=== PATIENT | female | born 1935 | race Caucasian/White ===

== ENCOUNTER → 2016-12-05 | Outpatient (CLI) | payer MEDICARE, OTHER ==
[~2016-12-05] MED LIST: AMLO-334 PO; AMLO1CAP9 PO; ATEN50TA PO; CITA20TA4 PO; LEVO75TA6 PO; LVT.088T PO; OMEP40CA36 PO; ONDA-43 PO; PNT40TEC PO; POTA99TA15 PO; PRED10TA PO; PRV20T GT; SULF1TAB34 PO
== END ==
LOC: RAD 09:52
PROVIDERS: ATTEND Nurse Practitioner Family
DX: Z12.31 Encounter for screening mammogram for malignant neoplasm of breast (principal)
CPT/HCPCS: 77067

== ENCOUNTER → 2017-05-06 | Outpatient (CLI) | payer MEDICARE, OTHER ==
[~2017-05-06] MED LIST changes: +IOHEXOL 350 MG/ML 100 ML (OMNIPAQUE 350) VIAL IV ONE; +NS 250 ML (IVPB) BAG IV ONE
--- NOTE | 2017-05-06 16:04 | Diagnostic Imaging Report ---
INDICATION: Right leg pain and swelling. Right leg venous Doppler study was performed in the routine fashion with color flow Doppler and waveform analysis. FINDINGS: The right common femoral vein, superficial femoral vein, popliteal vein and visualized portion of the tibial veins show normal compressibility and venous flow patterns. There is normal augmentation. IMPRESSION: No evidence of deep vein thrombosis of the major veins of the right leg. Dictated by: Dictated on workstation # [id number]
--- NOTE | 2017-05-06 17:00 | Diagnostic Imaging Report ---
PROCEDURE: CT right lower extremity with contrast. TECHNIQUE: Multiple contiguous axial CT images of the right extremity were obtained after intravenous administration of iodinated contrast. INDICATION: Swelling, mass, lump in the right lower leg lateral side for 3 months. COMPARISON: None. FINDINGS: No acute fracture or dislocation is seen in the right tibia/fibula. Mild degenerative changes are seen in the right knee and right ankle. There is a small right knee joint effusion. No left ankle effusion is seen. No aggressive osseous lesions are identified. There is mild deformity of the proximal left fibula, may be from remote injury. The musculature in the right lower leg demonstrates mild generalized atrophy, but no focal atrophy is seen. No rim-enhancing fluid collections are seen. No soft tissue masses are seen. There is mild subcutaneous edema at the lateral aspect of the right lower leg overlying the peroneus longus muscle. The visible tendons are suboptimally evaluated by CT, but no abnormality is seen. IMPRESSION: 1. Mild nonspecific subcutaneous edema in the lateral right lower leg, may represent mild cellulitis. No soft tissue mass or rim-enhancing fluid collection is seen. 2. Small right knee joint effusion. No acute osseous abnormality is seen. Dictated by: Dictated on workstation # [id number]
== END ==
LOC: RAD 14:52
DX: R60.0 Localized edema (principal); M25.461 Effusion, right knee
CPT/HCPCS: 73701

== ENCOUNTER 2017-05-17 19:53 | Emergency (ER) | payer MEDICARE, OTHER ==
[~2017-05-17] VITALS: Ht 170.2 cm; Wt 79.4 kg
[~2017-05-17 19:53] MED LIST changes: -IOHEXOL 350 MG/ML 100 ML (OMNIPAQUE 350) VIAL IV ONE; -NS 250 ML (IVPB) BAG IV ONE
--- OUTSIDE RECORDS SUMMARY | 2017-05-17 20:00 | XMS REPORT | Continuity of Care Document ---
Author Author [facility] Organization [facility] Address Unknown Phone Unavailable Allergies Active Description Code Type Severity Reaction Onset Reported/Identified Relationship to Patient Clinical Status Yes ZOCOR, LIPITOR ZOCOR, LIPITOR Unknown N/A 11/22/2013 Yes atorvastatin [id number] Drug Allergy Unknown N/A 08/28/2014 Yes simvastatin [id number] Drug Allergy Unknown N/A 08/28/2014 Medications There is no data. Problems Date Dx Coded Attending Type Code Diagnosis Diagnosed By 01/07/2010 Ot 530.81 01/07/2010 Ot 553.3 01/07/2010 Ot 562.10 01/07/2010 Ot V12.72 12/22/2013 DENIZ HERNANDEZ SECURITY SYSTEM ANALYST Ot 724.2 12/28/2013 DENIZ HERNANDEZ SECURITY SYSTEM ANALYST Ot 562.10 12/28/2013 DENIZ HERNANDEZ SECURITY SYSTEM ANALYST Ot V76.12 01/03/2014 DENIZ HERNANDEZ SECURITY SYSTEM ANALYST Ot 721.0 01/03/2014 DENIZ HERNANDEZ SECURITY SYSTEM ANALYST Ot 847.0 01/03/2014 DENIZ HERNANDEZ SECURITY SYSTEM ANALYST Ot E000.8 01/03/2014 DENIZ HERNANDEZ SECURITY SYSTEM ANALYST Ot E928.9 01/03/2014 DENIZ HERNANDEZ SECURITY SYSTEM ANALYST Ot 724.2 08/27/2014 PAUL TRUJILLO, ASTRID Adler Ot 599.0 URIN TRACT INFECTION NOS 08/27/2014 PAUL TRUJILLO, ASTRID Adler Ot 784.0 HEADACHE 08/30/2014 KEEGAN TRUJILLO, BRAYAN Lott Ot 244.9 08/30/2014 KEEGAN TRUJILLO, BRAYAN Lott Ot 311 08/30/2014 KEEGAN TRUJILLO, BRAYAN Lott Ot 401.9 08/30/2014 KEEGAN TRUJILLO, BRAYAN Lott Ot 530.81 08/30/2014 KEEGAN TRUJILLO, BRAYAN Lott Ot 536.2 08/30/2014 KEEGAN TRUJILLO, BRAYAN Lott Ot 599.0 08/30/2014 KEEGAN TRUJILLO, BRAYAN D Ot 716.90 08/31/2014 Ot V76.12 08/31/2014 Ot V76.12 08/31/2014 KEEGAN TRUJILLO, BRAYAN D Ot V76.12 08/31/2014 CONI MITCH [employer]AR[employer] MODEL MAKER Ot 793.89 08/31/2014 BRANDO TRUJILLO, KERWIN Lott Ot 530.19 08/31/2014 BRANDO TRUJILLO, KERWIN Lott Ot 535.40 08/31/2014 BRANDO TRUJILLO, KERWIN Lott Ot 553.3 08/31/2014 BRANDO TRUJILLO, KERWIN Lott Ot 562.10 08/31/2014 BRANDO TRUJILLO, KERWIN Lott Ot V12.72 08/31/2014 BRANDO TRUJILLO, KERWIN Lott Ot V16.0 08/31/2014 BRANDO TRUJILLO, KERWIN Lott Ot V76.51 08/31/2014 BRANDO TRUJILLO, KERWIN Lott Ot V72.84 08/31/2014 DENIZ HERNANDEZ SECURITY SYSTEM ANALYST Ot 562.10 08/31/2014 DENIZ HERNANDEZ SECURITY SYSTEM ANALYST Ot V76.12 08/31/2014 DENIZ HERNANDEZ SECURITY SYSTEM ANALYST Ot 724.2 08/31/2014 DENIZ HERNANDEZ SECURITY SYSTEM ANALYST Ot 721.0 08/31/2014 DENIZ HERNANDEZ SECURITY SYSTEM ANALYST Ot 847.0 08/31/2014 DENIZ HERNANDEZ SECURITY SYSTEM ANALYST Ot E000.8 08/31/2014 DENIZ HERNANDEZ SECURITY SYSTEM ANALYST Ot E928.9 08/31/2014 KEEGAN TRUJILLO, BRAYAN D Ot 244.9 08/31/2014 KEEGAN TRUJILLO, BRAYAN D Ot 311 08/31/2014 KEEGAN TRUJILLO, BRAYAN D Ot 401.9 08/31/2014 KEEGAN TRUJILLO, BRAYAN D Ot 530.81 08/31/2014 KEEGAN TRUJILLO, BRAYAN D Ot 536.2 08/31/2014 KEEGAN TRUJILLO, BRAYAN D Ot 599.0 08/31/2014 KEEGAN TRUJILLO, BRAYAN D Ot 716.90 08/31/2014 KEEGAN TRUJILLO, BRAYAN D Ot 244.9 HYPOTHYROIDISM NOS 08/31/2014 KEEGAN TRUJILLO, BRAYAN D Ot 311 DEPRESSIVE DISORDER NEC 08/31/2014 KEEGAN TRUJILLO, BRAYAN D Ot 401.9 HYPERTENSION NOS 08/31/2014 KEEGAN TRUJILLO, BRAYAN D Ot 530.81 ESOPHAGEAL REFLUX 08/31/2014 KEEGAN TRUJILLO, BRAYAN Lott Ot 536.2 08/31/2014 KEEGAN TRUJILLO, BRAYAN Lott Ot 536.8 STOMACH FUNCTION DIS NEC 08/31/2014 KEEGAN TRUJILLO, BRAYAN Lott Ot 599.0 URIN TRACT INFECTION NOS 08/31/2014 KEEAGN TRUJILLO, BRAYAN Lott Ot 625.8 FEM GENITAL SYMPTOMS NEC 08/31/2014 KEEGAN TRUJILLO, BRAYAN Lott Ot 716.90 ARTHROPATHY NOS-UNSPEC 09/01/2014 Ot V76.12 09/01/2014 Ot V76.12 09/01/2014 KEEGAN TRUJILLO, BRAYAN Lott Ot V76.12 09/01/2014 CONI MITCH [employer] MODEL MAKER Ot 793.89 09/01/2014 BRANDO TRUJILLO, KERWIN Lott Ot 530.19 09/01/2014 BRANDO TRUJILLO, KERWIN Lott Ot 535.40 09/01/2014 BRANDO TRUJILLO, KERWIN Lott Ot 553.3 09/01/2014 BRANDO TRUJILLO, KERWIN oLtt Ot 562.10 09/01/2014 BRANDO TRUJILLO, KERWIN Lott Ot V12.72 09/01/2014 BRANDO TRUJILLO, KERWIN Lott Ot V16.0 09/01/2014 BRANDO TRUJILLO, KERWIN Lott Ot V76.51 09/01/2014 BRANOD TRUJILLO, KERWIN Lott Ot V72.84 09/01/2014 DENIZ HERNANDEZ SECURITY SYSTEM ANALYST Ot 562.10 09/01/2014 DENIZ HERNANDEZ SECURITY SYSTEM ANALYST Ot V76.12 09/01/2014 DENZI HERNANDEZ SECURITY SYSTEM ANALYST Ot 724.2 09/01/2014 DENIZ HERNANDEZ SECURITY SYSTEM ANALYST Ot 721.0 09/01/2014 DENIZ HERNANDEZ SECURITY SYSTEM ANALYST Ot 847.0 09/01/2014 DENIZ HERNANDEZ SECURITY SYSTEM ANALYST Ot E000.8 09/01/2014 DENIZ HERNANDEZ SECURITY SYSTEM ANALYST Ot E928.9 10/06/2014 KEEGAN TRUJILLO, BRAYAN Lott Ot 244.9 10/06/2014 KEEGAN TRUJILLO, BRAYAN Lott Ot 374.30 10/17/2014 KEEGAN TRUJILLO, BRAYAN Lott Ot 376.30 10/30/2014 KEEGAN TRUJILLO, BRAYAN Lott Ot 244.9 10/30/2014 KEEGAN TRUJILLO, BRAYAN Lott Ot 374.30 10/31/2014 KEEGAN TRUJILLO, BRAYAN Lott Ot 376.30 11/27/2014 KEEGAN TRUJILLO, BRAYAN Lott Ot 376.30 12/14/2014 KEEGAN TRUJILLO, BRAYAN Lott Ot Z12.31 07/11/2015 PAUL TRUJILLO, ASTRID Adler Ot 599.0 URIN TRACT INFECTION NOS 07/11/2015 PAUL TRUJILLO, ASTRID Adler Ot 784.0 HEADACHE 08/10/2015 PAUL TRUJILLO, ASTRID Adler Ot 599.0 URIN TRACT INFECTION NOS 08/10/2015 PAUL TRUJILLO, ASTRID Adler Ot 784.0 HEADACHE 12/04/2015 Ot V76.12 OTH SCREEN MAMMO-MALIGN NEOPLASM OF MIREYA 12/04/2015 KEEGAN TRUJILLO, BRAYAN Lott Ot V76.12 OTH SCREEN MAMMO-MALIGN NEOPLASM OF MIREYA 12/04/2015 MITCH NEWBERRY Ot 793.89 OTH (ABN) FINDINGS ON RADIOLOGICAL EXAMI 12/04/2015 BRANDO TRUJILLO, KERWIN Lott Ot 530.19 OTHER ESOPHAGITIS 12/04/2015 BRANDO TRUJILLO, KERWIN Lott Ot 535.40 OTH SPECIFIED GASTRITIS,W/O MENTION OF H 12/04/2015 BRANDO TRUJILLO, KERWIN Lott Ot 553.3 DIAPHRAGMATIC HERNIA 12/04/2015 BRANDO TRUJILLO, KERWIN Lott Ot 562.10 DIVERTICULOSIS COLON (W/O MENT OF HEMORR 12/04/2015 BRANDO TRUJILLO, KERWIN Lott Ot V12.72 PERSONAL HISTORY OF COLONIC POLYPS 12/04/2015 BRANDO TRUJILLO, KERWIN Lott Ot V16.0 FAMILY HX-GI MALIGNANCY 12/04/2015 BRANDO TRUJILLO, KERWIN Lott Ot V76.51 SCREEN MAL NEOP-COLON 12/04/2015 BRANDO TRUJILLO, KERWIN Lott Ot V72.84 EXAM PRE-OPERATIVE NOS 12/04/2015 DENIZ HERNANDEZ SECURITY SYSTEM ANALYST Ot 562.10 DIVERTICULOSIS COLON (W/O MENT OF HEMORR 12/04/2015 DENIZ HERNANDEZ SECURITY SYSTEM ANALYST Ot V76.12 OTH SCREEN MAMMO-MALIGN NEOPLASM OF [place]REYA 12/04/2015 DENIZ HERNANDEZ SECURITY SYSTEM ANALYST Ot 724.2 LUMBAGO 12/04/2015 DENIZ HERNANDEZ SECURITY SYSTEM ANALYST Ot 721.0 CERVICAL SPONDYLOSIS 12/04/2015 DENIZ HERNANDEZ SECURITY SYSTEM ANALYST Ot 847.0 SPRAIN OF NECK 12/04/2015 DENIZ HERNANDEZ SECURITY SYSTEM ANALYST Ot E000.8 OTHER EXTERNAL CAUSE STATUS 12/04/2015 DENIZ HERNANDEZ N SECURITY SYSTEM ANALYST Ot E928.9 ACCIDENT NOS 12/04/2015 KEEGAN TRUJILLO, BRAYAN Lott Ot 244.9 HYPOTHYROIDISM NOS 12/04/2015 BRAYAN ALLISON MD Ot 374.30 PTOSIS OF EYELID NOS 12/04/2015 BRAYAN ALLISON MD Ot 376.30 EXOPHTHALMOS NOS 12/04/2015 BRAYAN ALLISON MD Ot 376.30 EXOPHTHALMOS NOS 12/04/2015 BRAYAN ALLISON MD Ot Z12.31 ENCNTR SCREEN MAMMOGRAM FOR MALIGNANT NE 12/13/2015 DENZI HERNANDEZ N SECURITY SYSTEM ANALYST Ot Z12.31 ENCNTR SCREEN MAMMOGRAM FOR MALIGNANT NE 01/10/2016 PAUL TRUJILLO, ASTRID K Ot 599.0 URIN TRACT INFECTION NOS 01/10/2016 PAUL TRUJILLO, ASTRID K Ot 784.0 HEADACHE 04/09/2016 PAUL TRUJILLO ASTRID K Ot 599.0 URIN TRACT INFECTION NOS 04/09/2016 PAUL TRUJILLO ASTRID K Ot 784.0 HEADACHE 10/10/2016 PAUL TRUJILLO, ASTRID K Ot 599.0 URIN TRACT INFECTION NOS 10/10/2016 PAUL TRUJILLO, ASTRID K Ot 784.0 HEADACHE 12/05/2016 BRAYAN ALLISON MD Ot V76.12 OTH SCREEN MAMMO-MALIGN NEOPLASM OF MIREYA 12/05/2016 CONI MITCH Kamer[employer] MODEL MAKER Ot 793.89 OTH (ABN) FINDINGS ON RADIOLOGICAL EXAMI 12/05/2016 KERWIN MICHAELS MD Ot 530.19 OTHER ESOPHAGITIS 12/05/2016 KERWIN MICHAELS MD Ot 535.40 OTH SPECIFIED GASTRITIS,W/O MENTION OF H 12/05/2016 KERWIN MICHAELS MD Ot 553.3 DIAPHRAGMATIC HERNIA 12/05/2016 KERWIN MICHAELS MD Ot 562.10 DIVERTICULOSIS COLON (W/O MENT OF HEMORR 12/05/2016 KERWIN MICHAELS MD Ot V12.72 PERSONAL HISTORY OF COLONIC POLYPS 12/05/2016 KERWIN MICHAELS MD Ot V16.0 FAMILY HX-GI MALIGNANCY 12/05/2016 KERWIN MICHAELS MD Ot V76.51 SCREEN MAL NEOP-COLON 12/05/2016 KERWIN MICHAELS MD Ot V72.84 EXAM PRE-OPERATIVE NOS 12/05/2016 DENIZ HERNANDEZ SECURITY SYSTEM ANALYST Ot 562.10 DIVERTICULOSIS COLON (W/O MENT OF HEMORR 12/05/2016 DENIZ HERNANDEZ Tr SECURITY SYSTEM ANALYST Ot V76.12 OTH SCREEN MAMMO-MALIGN NEOPLASM OF [place]REYA 12/05/2016 DENIZ HERNANDEZ SECURITY SYSTEM ANALYST Ot 724.2 LUMBAGO 12/05/2016 DENIZ HERNANDEZ SECURITY SYSTEM ANALYST Ot 721.0 CERVICAL SPONDYLOSIS 12/05/2016 DENIZ HERNANDEZ Tr SECURITY SYSTEM ANALYST Ot 847.0 SPRAIN OF NECK 12/05/2016 DENIZ HERNANDEZ SECURITY SYSTEM ANALYST Ot E000.8 OTHER EXTERNAL CAUSE STATUS 12/05/2016 DENIZ HERNANDEZ SECURITY SYSTEM ANALYST Ot E928.9 ACCIDENT NOS 12/05/2016 BRAYAN ALLISON MD Ot 244.9 HYPOTHYROIDISM NOS 12/05/2016 BRAYAN ALLISON MD Ot 374.30 PTOSIS OF EYELID NOS 12/05/2016 BRAYAN ALLISON MD Ot 376.30 EXOPHTHALMOS NOS 12/05/2016 BRAYAN ALLISON MD Ot 376.30 EXOPHTHALMOS NOS 12/05/2016 BRAYAN ALLISON MD Ot Z12.31 ENCNTR SCREEN MAMMOGRAM FOR MALIGNANT NE 12/05/2016 DENIZ HERNANDEZ Tr SECURITY SYSTEM ANALYST Ot Z12.31 ENCNTR SCREEN MAMMOGRAM FOR MALIGNANT NE 12/05/2016 DENIZ HERNANDEZ Tr SECURITY SYSTEM ANALYST Ot Z12.31 ENCNTR SCREEN MAMMOGRAM FOR MALIGNANT NE 12/29/2016 DENIZ HERNANDEZ Tr SECURITY SYSTEM ANALYST Ot Z12.31 ENCNTR SCREEN MAMMOGRAM FOR MALIGNANT NE 05/07/2017 BRAYAN ALLISON MD Ot M25.461 EFFUSION, RIGHT KNEE 05/07/2017 BRAYAN ALLISON MD Ot R60.0 LOCALIZED EDEMA Procedures There is no data. Results There is no data. Encounters ACCT No. Visit Date/Time Discharge Status Pt. Type Provider Facility Loc./Unit Complaint [id number] 05/06/2017 14:52:00 05/06/2017 23:59:59 CLS Outpatient BRAYAN ALLISON MD [facility] RAD SWELLING,MASS AND LUMP,RIGHT LOWER LIMB [id number] 12/05/2016 09:52:00 12/05/2016 23:59:59 CLS Outpatient DENIZ HERNANDEZ SECURITY SYSTEM ANALYST [facility] RAD SCREENING Z12.31 [id number] 12/04/2015 10:22:00 12/04/2015 23:59:59 CLS Outpatient DENIZ HERNANDEZ SECURITY SYSTEM ANALYST [facility] RAD SCREENING [id number] 11/24/2014 10:28:00 11/24/2014 23:59:59 CLS Outpatient BRAYAN ALLISON MD [facility] RAD SCREENING [id number] 10/11/2014 13:29:00 10/11/2014 23:59:59 CLS Outpatient BRAYAN ALLISON MD [facility] RAD EXOPHTHALMOS [id number] 09/14/2014 14:10:00 09/14/2014 23:59:59 CLS Outpatient BRAYAN ALLISON MD [facility] RAD DOUBLE VISOIN, BULGING OF LT EYE [id number] 09/12/2014 12:28:00 09/12/2014 23:59:59 CLS Outpatient BRAYAN ALLISON MD [facility] RAD SWELLING OF LT EYE, DOUBLE VISION [id number] 08/28/2014 11:59:00 08/31/2014 16:07:00 DIS Inpatient BRAYAN ALLISON MD [facility] SURGICAL UTI;INTRACTABLE N/V [id number] 08/27/2014 10:19:00 08/27/2014 12:56:00 DIS Emergency ASTRID MILLER MD [facility] ER HEADACHE,EYE SWELLING [id number] 11/30/2013 10:41:00 11/30/2013 23:59:59 CLS Outpatient DENIZ HERNANDEZ SECURITY SYSTEM ANALYST [facility] RAD LOW BACK PAIN [id number] 11/25/2013 08:25:00 11/25/2013 23:59:59 CLS Outpatient DENIZ HERNANDEZ SECURITY SYSTEM ANALYST [facility] RAD SPRAIN OF NECK [id number] 11/22/2013 07:43:00 11/22/2013 23:59:59 CLS Outpatient DENIZ HERNANDEZ SECURITY SYSTEM ANALYST [facility] RAD ABDOMINAL PAIN [id number] 07/07/2012 07:55:00 07/07/2012 23:59:59 CLS Outpatient MITCH NEWBERRY ELDA [facility] RAD ABN MAMMO [id number] 06/29/2012 08:31:00 06/29/2012 23:59:59 [facility] [id number] 06/24/2012 07:49:00 06/24/2012 23:59:59 CLS Outpatient KERWIN MICHAELS MD [facility] PREOP HISTORY OF POLYPS/ REFLUX [id number] 06/18/2012 10:02:00 06/18/2012 23:59:59 CLS Outpatient BRAYAN ALLISON MD [facility] RAD SCREENING [id number] 08/31/2014 13:23:00 Document Registration [id number] 02/14/2010 09:03:00 Document Registration [id number] 01/07/2010 09:29:00 Document Registration
[2017-05-17 20:14] LABS: BILIRUBIN,URINE NEGATIVE (NEGATIVE); CLARITY,URINE CLEAR; COLOR,URINE YELLOW; GLUCOSE, URINE (UA) NEGATIVE (NEGATIVE); KETONES,URINE NEGATIVE (NEGATIVE); LEUKOCYTE ESTERASE ,URINE 1+ (NEGATIVE); NITRITE,URINE NEGATIVE (NEGATIVE); PH,URINE 5 (5-9); PROTEIN,URINE NEGATIVE (NEGATIVE); UROBILINOGEN,URINE NORMAL (NORMAL)
[2017-05-17] MEDS ORDERED: ONDANSETRON 4 MG (ZOFRAN) ORAL DISSOLVE TAB SL STA (20:15)
[2017-05-17 20:25] LABS: BACTERIA,URINE NEGATIVE /HPF; HYALINE CASTS, URINE RARE /LPF; RBC,URINE RARE /HPF; SQUAMOUS EPITHELIAL CELL,UR 0-2 /HPF; WBC,URINE 0-2 /HPF
--- NOTE | 2017-05-17 20:51 | ED GU-Female ---
General Chief Complaint: -Female Stated Complaint: UTI SYMPTOMS VOMITING/CHILLS Nursing Triage Note: difficult urination, n/v since 1700 recently treated for uti did not finish abx. Nursing Sepsis Screen: No Definite Risk Source: patient, family Exam Limitations: no limitations History of Present Illness Date Seen by Provider: May 17, 2017 Time Seen by Provider: 20:51 Initial Comments 82-year-old female patient presents to the emergency department with complaints of chills, nausea, vomiting, and diarrhea beginning tonight at 1700. Patient states she was recently treated for a urinary tract infection. Did not finish all of her antibiotics. Patient states she was treated approximately 2 weeks ago. Also was treated approximately 2 months ago for shingles of the right posterior shoulder. Initially reported difficulty with urination, but states now that she is not having any frequency or dysuria. Timing/Duration: this evening, constant Severity/Quality: cramping Location: other (generalized abdomen) Activities at Onset: none Prior Genitourinary Problems: none Modifying Factors: Worsens With Eating Allergies and Home Medications Allergies Coded Allergies: atorvastatin (Verified Allergy, Unknown, 08/28/14) simvastatin (Verified Allergy, Unknown, 08/28/14) Home Medications Amlodipine/Benazepril 1 Each Capsule, 1 EACH PO DAILY, (Reported) Atenolol 50 Mg Tablet, 50 MG PO DAILY, (Reported) Citalopram Hydrobromide 20 Mg Tablet, 20 MG PO DAILY, (Reported) Levothyroxine Sodium 75 Mcg Tablet, 75 MCG PO DAILY, (Reported) Omeprazole 40 Mg Capsule.dr, 40 MG PO DAILY, (Reported) Ondansetron 8 Mg Tab, 8 MG PO Q4H Prescribed by: ASTRID MILLER on 08/27/14 1147 Ondansetron 8 Mg Tab.rapdis, 8 MG PO Q6H PRN for NAUSEA/VOMITING-1ST LINE Prescribed by: WILBERT RAMIREZ on 05/17/17 2303 Potassium Gluconate 99 Mg Tablet, 99 MG PO DAILY Prescribed by: BRAYAN MARVIN on 08/31/14 0924 Prednisone 10 Mg Tablet, 10 MG PO BID PRN for AIR HUNGER Prescribed by: BRAYAN MARVIN on 08/31/14 0928 Promethazine HCl 25 Mg Supp.rect, 25 MG RC Q6H PRN for NAUSEA/VOMITING-2ND LINE Prescribed by: WILBERT RAMIREZ on 05/17/17 2303 Sulfamethoxazole/Trimethoprim 1 Each Tablet, 1 TAB PO BID Prescribed by: ASTRID MILLER on 08/27/14 1147 Patient Home Medication List Home Medication List Reviewed: Yes Review of Systems Constitutional: chills, No diaphoresis, No dizziness, No fever, malaise EENTM: no symptoms reported Respiratory: no symptoms reported Cardiovascular: no symptoms reported Gastrointestinal: abdominal pain (generalized abdominal cramping), diarrhea, No hematemesis, loss of appetite, No melena, nausea, vomiting Genitourinary: denies burning, denies dysuria, denies frequency, denies flank pain, denies hematuria, denies pain Musculoskeletal: no symptoms reported Skin: no symptoms reported Psychiatric/Neurological: No Symptoms Reported All Other Systemes Reviewed Negative Unless Noted: Yes (Negative excepted noted.) Past Przzkks-Acwust-Stwkzx Hx Patient Social History Alcohol Use: Denies Use Recreational Drug Use: No Smoking Status: Never a Smoker 2nd Hand Smoke Exposure: No Recent Foreign Travel: No Contact w/Someone Who Travel: No Recent Infectious Disease Expo: No Recent Hopitalizations: No Immunizations Up To Date Date of Pneumonia Vaccine: Aug 09, 2009 Seasonal Allergies Seasonal Allergies: No Past Medical History Surgeries: Yes (HIATAL HERNIA) Appendectomy, Gallbladder, Thyroidectomy Respiratory: No Cardiac: Yes High Cholesterol, Hypertension Neurological: No : No 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 Genitourinary: Yes UTI-Chronic Gastrointestinal: Yes Gastroesophageal Reflux, Diverticulosis, Hiatal Hernia Musculoskeletal: Yes (ARTHRITIS) Endocrine: Yes Hypothyroidsim HEENT: Yes Cataract Cancer: No Psychosocial: Yes Depression Integumentary: No Blood Disorders: No Adverse Reaction/Blood Tranf: No Family Medical History Reviewed Nursing Family Hx Cataracts G8 SISTER Colon cancer G8 SISTER FH: stroke 19 FATHER FHx: heart disease 19 MOTHER Glaucoma G8 SISTER Leukemia G8 BROTHER Prostate cancer G8 BROTHER Thyroid disease G8 SISTER No Pertinent Family Hx Physical Exam Vital Signs Vital Signs - First Documented 05/17/17 20:10 Temp 98.8 Pulse 97 Resp 18 B/P (MAP) 130/63 (85) Pulse Ox 95 O2 Delivery Room Air Capillary Refill : Less Than 3 Seconds General Appearance: WD/WN, no apparent distress HEENT: PERRL/EOMI, pharynx normal Neck: supple, normal inspection Cardiovascular: normal peripheral pulses, regular rate, rhythm, no edema, no murmur Respiratory: lungs clear, normal breath sounds, no respiratory distress, no accessory muscle use Gastrointestinal: normal bowel sounds, soft, no organomegaly, No distended, guarding (lower abdominal guarding), No rebound, tenderness (generalized tenderness with greatest tenderness in the lower abdomen) Back: no CVA tenderness, other (erythematous patchy rash of the right posterior shoulder consistent with a recent history of herpes zoster.) Extremities: no pedal edema, normal capillary refill Neurologic/Psychiatric: alert, normal mood/affect, oriented x 3 Skin: normal color, warm/dry, rash (erythematous patchy rash of the right posterior shoulder consistent with a recent history of herpes zoster.) Progress/Results/Core Measures Suspected Sepsis Recent Fever Within 48 Hours: No Infection Criteria Present: None New/Unexplained Altered Menta: No Sepsis Screen: No Definite Risk Sepsis Diagnosis: SIRS Temperature:98.8 Pulse: 97 Respiratory Rate: 18 Laboratory Tests 05/17/17 21:25: White Blood Count 7.1 Blood Pressure 130 /63 Mean: 85 Laboratory Tests 05/17/17 21:25: Creatinine 0.96, Platelet Count 162, Total Bilirubin 0.4 Results/Orders Lab Results Laboratory Tests Test 05/17/17 20:08 05/17/17 21:25 Range/Units Urine Color YELLOW Urine Clarity CLEAR Urine pH 5 5-9 Urine Specific [place] 1.015 L 1.016-1.022 Urine Protein NEGATIVE NEGATIVE Urine Glucose (UA) NEGATIVE NEGATIVE Urine Ketones NEGATIVE NEGATIVE Urine Nitrite NEGATIVE NEGATIVE Urine Bilirubin NEGATIVE NEGATIVE Urine Urobilinogen NORMAL NORMAL MG/DL Urine Leukocyte Esterase 1+ H NEGATIVE Urine RBC (Auto) NEGATIVE NEGATIVE Urine RBC RARE /HPF Urine WBC 0-2 /HPF Urine Squamous Epithelial Cells 0-2 /HPF Urine Renal Epithelial Cells NONE /HPF Urine Crystals NONE /LPF Urine Bacteria NEGATIVE /HPF Urine Casts PRESENT /LPF Urine Hyaline Casts RARE /LPF Urine Mucus NEGATIVE /LPF Urine Culture Indicated NO White Blood Count 7.1 4.3-11.0 10^3/uL Red Blood Count 4.66 4.35-5.85 10^6/uL Hemoglobin 13.9 11.5-16.0 G/DL Hematocrit 40 35-52 % Mean Corpuscular Volume 86 80-99 FL Mean Corpuscular Hemoglobin 30 25-34 PG Mean Corpuscular Hemoglobin Concent 35 32-36 G/DL Red Cell Distribution Width 14.4 10.0-14.5 % Platelet Count 162 130-400 10^3/uL Mean Platelet Volume 11.4 H 7.4-10.4 FL Neutrophils (%) (Auto) 92 H 42-75 % Lymphocytes (%) (Auto) 3 L 12-44 % Monocytes (%) (Auto) 3 0-12 % Eosinophils (%) (Auto) 2 0-10 % Basophils (%) (Auto) 0 0-10 % Neutrophils # (Auto) 6.6 1.8-7.8 X 10^3 Lymphocytes # (Auto) 0.2 L 1.0-4.0 X 10^3 Monocytes # (Auto) 0.2 0.0-1.0 X 10^3 Eosinophils # (Auto) 0.1 0.0-0.3 10^3/uL Basophils # (Auto) 0.0 0.0-0.1 10^3/uL Neutrophils % (Manual) 86 % Lymphocytes % (Manual) 3 % Monocytes % (Manual) 3 % Eosinophils % (Manual) 0 % Basophils % (Manual) 0 % Band Neutrophils 6 % Reactive Lymphocytes 2 % Poikilocytosis SLIGHT Elliptocytes SLIGHT Sodium Level 129 L 135-145 MMOL/L Potassium Level 3.9 3.6-5.0 MMOL/L Chloride Level 96 L 98-107 MMOL/L Carbon Dioxide Level 20 L 21-32 MMOL/L Anion Gap 13 5-14 MMOL/L Blood Urea Nitrogen 14 7-18 MG/DL Creatinine 0.96 0.60-1.30 MG/DL Estimat Glomerular Filtration Rate 56 BUN/Creatinine Ratio 15 Glucose Level 106 H 70-105 MG/DL Calcium Level 9.2 8.5-10.1 MG/DL Total Bilirubin 0.4 0.1-1.0 MG/DL Aspartate Amino Transf (AST/SGOT) 33 5-34 U/L Alanine Aminotransferase (ALT/SGPT) 31 0-55 U/L Alkaline Phosphatase 63 40-136 U/L C-Reactive Protein High Sensitivity 1.36 H 0.00-0.50 MG/DL Total Protein 6.5 6.4-8.2 GM/DL Albumin 3.9 3.2-4.5 GM/DL Lipase 29 8-78 U/L My Orders Orders - WILBERT RAMIREZ Ua Culture If Indicated (05/17/17 20:02) Ondansetron Oral Dissolve Tab (Zofran (05/17/17 20:15) Saline Lock/Iv-Start (05/17/17 20:58) Cbc With Automated Diff (05/17/17 20:58) Comprehensive Metabolic Panel (05/17/17 20:58) Hs C Reactive Protein (05/17/17 20:58) Lipase (05/17/17 20:58) Ct Abdomen/Pelvis W (05/17/17 20:58) Ns Iv 1000 Ml (Sodium Chloride 0.9%) (05/17/17 20:58) Ondansetron Injection (Zofran Injectio (05/17/17 21:00) Famotidine Injection (Pepcid Injection) (05/17/17 20:58) Manual Differential (05/17/17 21:25) Rx-Ondansetron Po (Rx-Zofran Po) (05/17/17 23:05) Ondansetron Injection (Zofran Injectio (05/17/17 23:15) Medications Given in ED Current Medications Medications Dose Ordered Sig/Bisi Route Start Time Stop Time Status Last Admin Dose Admin Ondansetron HCl 4 mg ONCE ONCE IVP 05/17/17 21:00 05/17/17 21:01 DC 05/17/17 21:30 4 MG Sodium Chloride 1,000 ml @ 0 mls/hr Q0M ONCE IV 05/17/17 20:58 05/17/17 21:00 DC 05/17/17 21:30 0 MLS/HR Vital Signs/I&O 05/17/17 20:10 Temp 98.8 Pulse 97 Resp 18 B/P (MAP) 130/63 (85) Pulse Ox 95 O2 Delivery Room Air Capillary Refill : Less Than 3 Seconds Blood Pressure Mean: 85 Diagnostic Imaging Diagonstic Imaging: CT Plain Films/CT/US/NM/MRI: abdomen, pelvis Comments Nonspecific Jolene mesentery and subcentimeter lymph nodes in the midabdomen. Consider adenitis or mesenteric panniculitis. Small hiatal hernia noted. Sigmoid diverticulosis without diverticulitis. Findings per stat rad report. Reviewed: Reviewed Night [facility] Study Departure Communication (Admissions) Laboratory and diagnostic findings discussed with the patient and family. Plan for discharge to home. We will plan on having patient obtain stool cultures as an outpatient. We will also plan on repeating her BMP as an outpatient this week. Patient to follow-up with Dr. Marvin for recheck early this week. She will call for appointment times tomorrow. Patient is to return immediately to the emergency department for worsened symptoms or any other concerns. Impression Primary Impression: Mesenteric adenitis Disposition: HOME, SELF-CARE Condition: Improved Departure-Patient Inst. Decision time for Depature: 23:02 Referrals: BRAYAN MARVIN MD (PCP/Family) Primary Care Physician Patient Instructions: [id number], Mesenteric Lymphadenitis (DC) Add. Discharge Instructions: All discharge instructions reviewed with patient and/or family. Voiced understanding. Medications as instructed. Tylenol Extra Strength over-the- counter as directed for pain or fever. Push fluids. Clear liquid diet until symptoms improve, then increase diet slowly to a low-fat, bland diet. Follow- up with Dr. Marvin this week for recheck as an outpatient, call tomorrow morning for appointment time. Return to the emergency department for worsened symptoms or any other concerns. Scripts Promethazine HCl (Phenergan) 25 Mg Supp.rect 25 MG RC Q6H Y for NAUSEA/VOMITING-2ND LINE, #10 SUPP.RECT 0 Refills Prov: WILBERT RAMIREZ 05/17/17 Ondansetron (Ondansetron Odt) 8 Mg Tab.rapdis 8 MG PO Q6H Y for NAUSEA/VOMITING-1ST LINE, #10 TAB 0 Refills Prov: WILBERT RAMIREZ 05/17/17 WILBERT RAMIREZ May 17, 2017 20:51
[2017-05-17] MEDS ORDERED: NS IV 1000 ML 1,000 ML IV ONE (20:58)
[2017-05-17] MEDS ORDERED: FAMOTIDINE 20MG/2ML IV (PEPCID) IV STA (20:58)
[2017-05-17] MEDS ORDERED: ONDANSETRON 4 MG/2 ML (SDV) Z0FRAN IVP ONE ×2 (21:00→23:15)
[2017-05-17 21:35] LABS: BASOPHILS % (AUTO) 0 % (0-10); EOSINOPHILS # (AUTO) 0.1 10^3/uL (0.0-0.3); EOSINOPHILS % (AUTO) 2 % (0-10); HEMATOCRIT 40 % (35-52); HEMOGLOBIN 13.9 G/DL (11.5-16.0); LYMPHOCYTES # (AUTO) 0.2 X 10^3 (1.0-4.0); LYMPHOCYTES % (AUTO) 3 % (12-44); MEAN CORPUSCULAR HEMOGLOBIN 30 PG (25-34); MEAN CORPUSCULAR HGB CONC 35 G/DL (32-36); MEAN CORPUSCULAR VOLUME 86 FL (80-99); MEAN PLATELET VOLUME 11.4 FL (7.4-10.4); MONOCYTES # (AUTO) 0.2 X 10^3 (0.0-1.0); MONOCYTES % (AUTO) 3 % (0-12); NEUTROPHILS # (AUTO) 6.6 X 10^3 (1.8-7.8); NEUTROPHILS % (AUTO) 92 % (42-75); PLATELET COUNT 162 10^3/uL (130-400); RED BLOOD COUNT 4.66 10^6/uL (4.35-5.85); RED CELL DISTRIBUTION WIDTH 14.4 % (10.0-14.5); WHITE BLOOD COUNT 7.1 10^3/uL (4.3-11.0)
[2017-05-17 21:51] LABS: BAND NEUTROPHILS 6 %; BASOPHILS % (MANUAL) 0 %; ELLIPT/OVALOCYTES SLIGHT; EOSINOPHILS % (MANUAL) 0 %; LYMPHOCYTES % (MANUAL) 3 %; MONOCYTES % (MANUAL) 3 %; NEUTROPHILS % (MANUAL) 86 %; POIKILOCYTOSIS SLIGHT; REACTIVE LYMPHOCYTES 2 %
[2017-05-17 21:59] LABS: ALBUMIN 3.9 GM/DL (3.2-4.5); BILIRUBIN,TOTAL 0.4 MG/DL (0.1-1.0); CALCIUM 9.2 MG/DL (8.5-10.1); CREATININE SERUM 0.96 MG/DL (0.60-1.30); POTASSIUM 3.9 MMOL/L (3.6-5.0); TOTAL PROTEIN 6.5 GM/DL (6.4-8.2)
[2017-05-17] MEDS ORDERED: PROM25SU43 RC (23:03)
[2017-05-17] MEDS ORDERED: ONDA8TAB13 PO (23:03)
[2017-05-17] MEDS ORDERED: RX-ONDANSETRON 4 MG ODT (ZOFRAN) PPK #4 PO STA (23:05)
[2017-05-17 23:24] VITALS: BP 121/64
--- NOTE | 2017-05-18 07:01 | Diagnostic Imaging Report ---
PROCEDURE: CT abdomen and pelvis with contrast. TECHNIQUE: Multiple contiguous axial images were obtained through the abdomen and pelvis after administration of intravenous contrast. INDICATION: Nausea and vomiting. COMPARISON: 08/30/2014 FINDINGS: Included portions of the lung bases are clear. Note is made of moderate hiatal hernia. CT abdomen: There is colonic diverticulosis, but no CT evidence of acute diverticulitis. Normal appendix cannot be adequately identified, but there is no pericecal inflammation. Small bowel loops are nondistended. Benign-appearing renal cysts are present, bilaterally. Otherwise, the kidneys, adrenal glands, spleen, pancreas, and liver have a normal CT appearance. There is no loculated fluid collection, free fluid, nor free air within the abdomen. There is mild stranding in the central mesentery. Few prominent appearing, yet subcentimeter associated mesenteric lymph nodes are also noted. Otherwise, no abnormal mesenteric or retroperitoneal adenopathy is seen. There is diffuse calcified aortic and arterial atherosclerosis. Bony structures show no acute abnormalities. CT pelvis: Uterus has a heterogeneous appearance. There is suggestion of posterior uterine mass. Similar appearance, however was present on exam dated 08/30/2014. There is no loculated fluid collection, free fluid, nor free air within the pelvis. No abnormal adenopathy is seen. Bony structures show no acute abnormalities. 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 IMPRESSION: 1. No acute abnormalities are seen within the abdomen or pelvis. 2. Mild stranding of the central mesenteric fat with a few prominent, yet subcentimeter mesenteric lymph nodes. Findings are nonspecific, but can be seen with mesenteric adenitis/panniculitis. 3. Moderate hiatal hernia. 4. Colonic diverticulosis, but no CT evidence of acute diverticulitis. 5. Heterogeneous appearance of uterine myometrium similar compared to 08/30/2014. Findings could be on the basis of underlying fibroid uterus. Dictated by: Dictated on workstation # [id number]
== END 2017-05-17 23:20 | disposition home or self-care (01) ==
LOC: EDUNIT# 19:53 → ER 19:56
DX: I88.0 Nonspecific mesenteric lymphadenitis (principal); E78.00 Pure hypercholesterolemia, unspecified; I10 Essential (primary) hypertension; K21.9 Gastro-esophageal reflux disease without esophagitis; E03.9 Hypothyroidism, unspecified; F32.9 Major depressive disorder, single episode, unspecified; Z87.440 Personal history of urinary (tract) infections; Z88.1 Allergy status to other antibiotic agents; Z79.52 Long term (current) use of systemic steroids; Z80.0 Family history of malignant neoplasm of digestive organs; Z82.49 Family history of ischemic heart disease and other diseases of the circulatory system; Z80.6 Family history of leukemia; Z87.19 Personal history of other diseases of the digestive system; Z90.49 Acquired absence of other specified parts of digestive tract; Z90.89 Acquired absence of other organs
CPT/HCPCS: 36415; 74177; 80053; 81000; 83690; 85007; 85027; 86141

== ENCOUNTER → 2017-05-18 | Outpatient (CLI) | payer MEDICARE, OTHER ==
[~2017-05-18] MED LIST changes: +ONDA8TAB13 PO; +PROM25SU43 RC
[2017-05-18 13:54] LABS: CALCIUM 8.2 MG/DL (8.5-10.1); CREATININE SERUM 0.98 MG/DL (0.60-1.30); POTASSIUM 3.5 MMOL/L (3.6-5.0)
== END ==
LOC: LAB 13:10
PROVIDERS: ATTEND Physician Assistant
DX: R11.2 Nausea with vomiting, unspecified (principal); R19.7 Diarrhea, unspecified; I88.0 Nonspecific mesenteric lymphadenitis; E87.1 Hypo-osmolality and hyponatremia
CPT/HCPCS: 36415; 80048

== ENCOUNTER → 2017-12-07 | Outpatient (CLI) | payer MEDICARE, OTHER ==
--- NOTE | 2017-12-07 12:04 | Diagnostic Imaging Report ---
INDICATION: Routine screening. COMPARISON: Comparison is made with prior mammogram from 12/05/2016 and 12/04/2015. TECHNIQUE: 2D and 3D bilateral screening mammography was performed with computer-aided detection (CAD) system. FINDINGS: Both breasts are heterogeneously dense, limiting the sensitivity of mammography. There are scattered benign calcifications bilaterally. No dominant mass or malignant appearing microcalcifications are seen. The axillae are unremarkable. IMPRESSION: No mammographic features suspicious for malignancy are identified. ACR BI-RADS Category 2: Benign findings. Result letter will be mailed to the patient. Note: At least 10% of breast cancer is not imaged by mammography. Dictated by: Dictated on workstation # [id number]
== END ==
LOC: RAD 10:31
DX: Z12.31 Encounter for screening mammogram for malignant neoplasm of breast (principal)
CPT/HCPCS: 77067

== ENCOUNTER → 2018-03-18 | Outpatient (CLI) | payer MEDICARE, OTHER ==
--- NOTE | 2018-03-18 14:45 | Diagnostic Imaging Report ---
PROCEDURE: US Non-ob pelvis comp/trans. TECHNIQUE: Multiple real-time grayscale images were obtained of the pelvis in various projections endovaginally. Transabdominal imaging was also performed. INDICATION: Left lower quadrant pelvic pain. FINDINGS: The uterus measures 7.1 x 4.6 x 5.0 cm. Endometrium is markedly abnormal. There is marked thickening of the endometrium measuring up to 2.4 cm. There is internal vascularity present. Features are concerning for an endometrial mass. This measures approximately 5.1 x 2.9 x 4.2 cm. Ovaries are not visualized. No adnexal mass or free fluid is seen. IMPRESSION: There are features concerning for a large endometrial mass versus submucosal mass. Endometrial biopsy would be recommended. Dictated by: Dictated on workstation # [id number]
== END ==
LOC: RAD 12:56
PROVIDERS: ATTEND Obstetrics & Gynecology
DX: R10.32 Left lower quadrant pain (principal); D25.1 Intramural leiomyoma of uterus
CPT/HCPCS: 76830; 76856

== ENCOUNTER 2018-04-12 08:44 | Outpatient (CLI) | payer MEDICARE, OTHER ==
[~2018-04-12] VITALS: Ht 170.2 cm; Wt 79.4 kg
[2018-04-12] MEDS ORDERED: NF-LT10/20 PO (12:23)
[2018-04-12] MEDS ORDERED: OMEP40CA36 PO (12:23)
[2018-04-12] MEDS ORDERED: ATEN50TA PO (12:23)
[2018-04-12] MEDS ORDERED: ASPI-586 PO (12:23)
[2018-04-12] MEDS ORDERED: LEVO75TA6 PO (12:23)
[2018-04-12] MEDS ORDERED: CITA20TA9 PO (12:23)
[2018-04-13] MEDS ORDERED: ACET-2267 PO (14:46)
[2018-04-13] MEDS ORDERED: OXYC-529 PO (14:46)
== END 2018-04-12 12:37 | disposition home or self-care (01) ==
LOC: PREOP 08:44
PROVIDERS: ATTEND Obstetrics & Gynecology
DX: Z01.818 Encounter for other preprocedural examination (principal)

== ENCOUNTER 2018-04-13 12:39 | Day surgery (SDC) | payer MEDICARE, OTHER ==
[~2018-04-13] VITALS: Ht 170.2 cm; Wt 79.4 kg
[~2018-04-13 12:39] MED LIST changes: +ASPI-586 PO; +CITA20TA9 PO; +NF-LT10/20 PO
[2018-04-13 13:00] VITALS: BP 168/77
[2018-04-13] MEDS: LACTATED RINGERS 1,000 ML IV PRN ×2 (13:00→14:15)
[2018-04-13] MEDS ORDERED: proPOfol 200 MG/20 ML (DIPRIVAN) VIAL IV ONE (13:13)
[2018-04-13] MEDS ORDERED: MIDAZOLAM 2 MG/2 ML (VERSED) VIAL ONE (13:13)
[2018-04-13] MEDS ORDERED: ONDANSETRON 4 MG/2 ML (SDV) Z0FRAN ONE (13:13)
[2018-04-13] MEDS ORDERED: fentaNYL INJECTION 100 MCG/2 ML AMP ONE (13:13)
[2018-04-13] MEDS ORDERED: LIDOCAINE PF 2% 5 ML (XYLOCAINE) VIAL ONE (13:13)
[2018-04-13] MEDS ORDERED: SEVOFLURANE (ULTANE) 15 ML INHAL SOLN ONE ×2 (13:14→14:24)
[2018-04-13] MEDS ORDERED: DEXAMETHASONE 10 MG/ML (DECADRON) 1 ML VIAL ONE (13:14)
[2018-04-13] MEDS ORDERED: ceFAZolin INJECTION 1,000 MG ONE (13:17)
[2018-04-13] MEDS ORDERED: metroNIDAZOLE 500MG/100ML IVPB 100 ML ONE (13:17)
[2018-04-13] MEDS ORDERED: WATER (STERILE) FOR INJECTION 10 ML ONE (13:17)
--- OUTSIDE RECORDS SUMMARY | 2018-04-13 13:28 | XMS REPORT | Continuity of Care Document ---
Author Author [facility] Organization [facility] Address Unknown Phone Unavailable Allergies Active Description Code Type Severity Reaction Onset Reported/Identified Relationship to Patient Clinical Status Yes ZOCOR, LIPITOR ZOCOR, LIPITOR Unknown N/A 11/22/2013 Yes atorvastatin [id number] Drug Allergy Unknown N/A 08/28/2014 Yes simvastatin [id number] Drug Allergy Unknown N/A 08/28/2014 Medications There is no data. Problems Date Dx Coded Attending Type Code Diagnosis Diagnosed By 01/07/2010 Ot 530.81 01/07/2010 Ot 553.3 01/07/2010 Ot 562.10 01/07/2010 Ot V12.72 12/22/2013 DENIZ HERNANDEZ [employer]AGE ASSEMBLER Ot 724.2 12/28/2013 DENIZ HERNANDEZ [employer]OU[employer]AGE ASSEMBLER Ot 562.10 12/28/2013 DENIZ HERNANDEZ [employer]OUFLAGE ASSEMBLER Ot V76.12 01/03/2014 DENIZ HERNANDEZ [employer]OUFLAGE ASSEMBLER Ot 721.0 01/03/2014 DENIZ HERNANDEZ [employer]OUFLAGE ASSEMBLER Ot 847.0 01/03/2014 DENIZ HERNANDEZ [employer]OUFLAGE ASSEMBLER Ot E000.8 01/03/2014 DENIZ HERNANDEZ [employer]OUFLAGE ASSEMBLER Ot E928.9 01/03/2014 DENIZ HERNANDEZ [employer]OUFLAGE ASSEMBLER Ot 724.2 08/27/2014 PAUL TRUJILLO, ASTRID Adler [...] KEEGAN TRUJILLO, BRAYAN D Ot V76.12 08/31/2014 MITCH [employer]Y Ot 793.89 08/31/2014 BRANDO TRUJILLO, KERWIN Lott Ot 530.19 08/31/2014 BRANDO TRUJILLO, KERWIN Lott Ot 535.40 08/31/2014 BRANDO TRUJILLO, KERWIN Lott Ot 553.3 08/31/2014 BRANDO TRUJILLO, KERWIN Lott Ot 562.10 08/31/2014 BRANDO TRUJILLO, KERWIN Lott Ot V12.72 08/31/2014 BRANDO TRUJILLO, KERWIN Lott Ot V16.0 08/31/2014 BRANDO TRUJILLO, KERWIN Lott Ot V76.51 08/31/2014 BRANDO TRUJILLO, KERWIN Lott Ot V72.84 08/31/2014 DENIZ HERNANDEZ [employer]OUFLAGE ASSEMBLER Ot 562.10 08/31/2014 DENIZ HERNANDEZ [employer]OUFLAGE ASSEMBLER Ot V76.12 08/31/2014 DENIZ HERNANDEZ [employer]OUFLAGE ASSEMBLER Ot 724.2 08/31/2014 DENIZ HERNANDEZ [employer]OUFLAGE ASSEMBLER Ot 721.0 08/31/2014 DENIZ HERNANDEZ [employer]OUFLAGE ASSEMBLER Ot 847.0 08/31/2014 DENIZ HERNANDEZ [employer]OUFLAGE ASSEMBLER Ot E000.8 08/31/2014 DENIZ HERNANDEZ [employer]OUFLAGE ASSEMBLER Ot E928.9 08/31/2014 KEEGAN TRUJILLO, BRAYAN Lott Ot 244.9 08/31/2014 KEEGAN TRUJILLO, BRAYAN D [...] Ot 599.0 URIN TRACT INFECTION NOS 08/31/2014 KEEGAN TRUJILLO, BRAYAN Lott Ot 625.8 FEM GENITAL SYMPTOMS NEC 08/31/2014 KEEGAN TRUJILLO, BRAYAN Lott Ot 716.90 ARTHROPATHY NOS-UNSPEC 09/01/2014 Ot V76.12 09/01/2014 Ot V76.12 09/01/2014 KEEGAN TRUJILLO, BRAYAN Lott Ot V76.12 09/01/2014 CONI MITCH M PLANT WORKER Ot 793.89 09/01/2014 BRANDO TRUJILLO, KERWIN Lott Ot 530.19 09/01/2014 BRANDO TRUJILLO, KERWIN Lott Ot 535.40 09/01/2014 BRANDO TRUJILLO, KERWIN Lott Ot 553.3 09/01/2014 BRANDO TRUJILLO, KERWIN Lott Ot 562.10 09/01/2014 BRANDO TRUJILLO, KERWIN Lott Ot V12.72 09/01/2014 BRANDO TRUJILLO, KERWIN Lott Ot V16.0 09/01/2014 BRANDO TRUJILLO, KERWIN Lott Ot V76.51 09/01/2014 BRANDO TRUJILLO, KERWIN Lott Ot V72.84 09/01/2014 DENIZ HERNANDEZ [employer]OUFLAGE ASSEMBLER Ot 562.10 09/01/2014 DENIZ HERNANDEZ [employer]OUFLAGE ASSEMBLER Ot V76.12 09/01/2014 DENIZ HERNANDEZ [employer]OU[employer]AGE ASSEMBLER Ot 724.2 09/01/2014 DENIZ HERNANDEZ [employer]OUFLAGE ASSEMBLER Ot 721.0 09/01/2014 DENIZ HERNANDEZ [employer]OUFLAGE ASSEMBLER Ot 847.0 09/01/2014 DENIZ HERNANDEZ [employer]OUFLAGE ASSEMBLER Ot E000.8 09/01/2014 DENIZ HERNANDEZ [employer]OUFLAGE ASSEMBLER Ot E928.9 10/06/2014 KEEGAN TRUJILLO, BRAYAN Lott [...] OTH SCREEN MAMMO-MALIGN NEOPLASM OF MIREYA 12/04/2015 CONI MITCH Kameron SCHROEDER Ot 793.89 OTH (ABN) FINDINGS ON RADIOLOGICAL [...] V72.84 EXAM PRE-OPERATIVE NOS 12/04/2015 DENIZ HERNANDEZ N [employer]OUFLAGE ASSEMBLER Ot 562.10 DIVERTICULOSIS COLON (W/O MENT OF HEMORR 12/04/2015 DENIZ HERNANDEZ [employer]OUFLAGE ASSEMBLER Ot V76.12 OTH SCREEN MAMMO-MALIGN NEOPLASM OF [place]RE[place] 12/04/2015 DENIZ HERNANDEZ [employer]OUFLAGE ASSEMBLER Ot 724.2 LUMBAGO 12/04/2015 DENIZ HERNANDEZ [employer]OUFLAGE ASSEMBLER Ot 721.0 CERVICAL SPONDYLOSIS 12/04/2015 DENIZ HERNANDEZ [employer]OUFLAGE ASSEMBLER Ot 847.0 SPRAIN OF NECK 12/04/2015 DENIZ HERNANDEZ N CAMOUFLAGE ASSEMBLER Ot E000.8 OTHER EXTERNAL CAUSE STATUS 12/04/2015 DENIZ HERNANDEZ N CAMOUFLAGE ASSEMBLER Ot E928.9 ACCIDENT NOS 12/04/2015 KEEGAN TRUJILLO, BRAYAN Lott Ot 244.9 HYPOTHYROIDISM NOS 12/04/2015 KEEGAN TRUJILLO, BRAYAN Lott Ot 374.30 PTOSIS OF EYELID NOS 12/04/2015 BRAYAN ALLISON MD Ot 376.30 EXOPHTHALMOS NOS 12/04/2015 KEEGAN TRUJILLO, BRAYAN Lott Ot 376.30 EXOPHTHALMOS NOS 12/04/2015 KEEGAN TRUJILLO, BRAYAN Lott Ot Z12.31 ENCNTR SCREEN MAMMOGRAM FOR MALIGNANT NE 12/13/2015 DENIZ HERNANDEZ N CAMOUFLAGE ASSEMBLER Ot Z12.31 ENCNTR SCREEN MAMMOGRAM FOR MALIGNANT NE 01/10/2016 PAUL TRUJILLO, ASTRID K Ot 599.0 URIN TRACT INFECTION NOS 01/10/2016 PAUL TRUJILLO, ASTRID K Ot 784.0 HEADACHE 04/09/2016 PAUL TRUJILLO, ASTRID K Ot 599.0 URIN TRACT INFECTION NOS 04/09/2016 PAUL TRUJILLO, ASTRID K Ot 784.0 HEADACHE 10/10/2016 PAUL TRUJILLO, ASTRID K Ot 599.0 URIN TRACT INFECTION NOS 10/10/2016 PAUL TRUJILLO, ASTRID K Ot 784.0 HEADACHE 12/05/2016 BRAYAN ALLISON MD Ot V76.12 OTH SCREEN MAMMO-MALIGN NEOPLASM OF MIRE[place] 12/05/2016 CONI MITCH [employer] Ot 793.89 OTH (ABN) FINDINGS ON RADIOLOGICAL [...] V72.84 EXAM PRE-OPERATIVE NOS 12/05/2016 DENIZ HERNANDEZ [employer]OUFLAGE ASSEMBLER Ot 562.10 DIVERTICULOSIS COLON (W/O MENT OF HEMORR 12/05/2016 DENIZ HERNANDEZ [employer]OUFLAGE ASSEMBLER Ot V76.12 OTH SCREEN MAMMO-MALIGN NEOPLASM OF [place]RE[place] 12/05/2016 DENIZ HERNANDEZ [employer]OUFLAGE ASSEMBLER Ot 724.2 LUMBAGO 12/05/2016 DENIZ HERNANDEZ [employer]OUFLAGE ASSEMBLER Ot 721.0 CERVICAL SPONDYLOSIS 12/05/2016 DENIZ HERNANDEZ [employer]OUFLAGE ASSEMBLER Ot 847.0 SPRAIN OF NECK 12/05/2016 DENIZ HERNANDEZ [employer]OUFLAGE ASSEMBLER Ot E000.8 OTHER EXTERNAL CAUSE STATUS 12/05/2016 DENIZ HERNANDEZ [employer]OUFLAGE ASSEMBLER Ot E928.9 ACCIDENT NOS 12/05/2016 KEEGAN TRUJILLO, BRAYAN Lott Ot 244.9 HYPOTHYROIDISM NOS 12/05/2016 KEEGAN TRUJILLO, BRYAAN D Ot 374.30 PTOSIS OF EYELID NOS 12/05/2016 KEEGAN TRUJILLO, BRAYAN D Ot 376.30 EXOPHTHALMOS NOS 12/05/2016 KEEGAN TRUJILLO, BRAYAN D Ot 376.30 EXOPHTHALMOS NOS 12/05/2016 KEEGAN TRUJILLO, BRAYAN D Ot Z12.31 ENCNTR SCREEN MAMMOGRAM FOR MALIGNANT NE 12/05/2016 DENIZ HERNANDEZ [employer]OUFLAGE ASSEMBLER Ot Z12.31 ENCNTR SCREEN MAMMOGRAM FOR MALIGNANT NE 12/05/2016 DENIZ HERNANDEZ [employer]OUFLAGE ASSEMBLER Ot Z12.31 ENCNTR SCREEN MAMMOGRAM FOR MALIGNANT NE 12/29/2016 DENIZ HERNANDEZ [employer]OUFLAGE ASSEMBLER Ot Z12.31 ENCNTR SCREEN MAMMOGRAM FOR MALIGNANT NE 05/07/2017 KEEGAN TRUJILLO, BRAYAN D Ot M25.461 EFFUSION, RIGHT KNEE 05/07/2017 BRAYAN ALLISON MD D Ot R60.0 LOCALIZED EDEMA 05/17/2017 WILBERT PETERS Ot E03.9 HYPOTHYROIDISM, UNSPECIFIED 05/17/2017 WILBERT PETERS Ot E78.00 PURE HYPERCHOLESTEROLEMIA, UNSPECIFIED 05/17/2017 WILBERT PETERS Ot F32.9 MAJOR DEPRESSIVE DISORDER, SINGLE EPISOD 05/17/2017 WILBERT PETERS Ot I10 ESSENTIAL (PRIMARY) HYPERTENSION 05/17/2017 WILBERT PETERS Ot I88.0 NONSPECIFIC MESENTERIC LYMPHADENITIS 05/17/2017 JAMES PA, WILBERT L Ot K21.9 GASTRO-ESOPHAGEAL REFLUX DISEASE WITHOUT 05/17/2017 JAMES BECK WILBERT Joel Ot R11.2 NAUSEA WITH VOMITING, UNSPECIFIED 05/17/2017 JAMES BECK WILBERT Joel Ot Z79.52 SENIOR CARE (CURRENT) USE OF SYSTEMIC STER 05/17/2017 JAMES BECK WILBERT Joel Ot Z80.0 FAMILY HISTORY OF MALIGNANT NEOPLASM OF 05/17/2017 JAMES BECK WILBERT Joel Ot Z80.6 FAMILY HISTORY OF LEUKEMIA 05/17/2017 JAMES BECK WILBERT L Ot Z82.49 FAMILY HX OF ISCHEM HEART DIS AND OTH DI 05/17/2017 JAMES BECK WILBERT Joel Ot Z87.19 PERSONAL HISTORY OF OTHER DISEASES OF TH 05/17/2017 WILBERT PETERS Ot Z87.440 PERSONAL HISTORY OF URINARY (TRACT) INFE 05/17/2017 JAMES BECK WILBERT L Ot Z88.1 ALLERGY STATUS TO OTHER ANTIBIOTIC AGENT 05/17/2017 JAMES BECK WILBERT L Ot Z90.49 ACQUIRED ABSENCE OF OTHER SPECIFIED PART 05/17/2017 JAMES BECK WILBERT Joel Ot Z90.89 ACQUIRED ABSENCE OF OTHER ORGANS 05/18/2017 KEEGAN TRUJILLO, BRAYAN Lott Ot V76.12 OTH SCREEN MAMMO-MALIGN NEOPLASM OF [place]RE[place] 05/18/2017 MITCH [employer]ERRY PL[employer] WORKER Ot 793.89 OTH (ABN) FINDINGS ON RADIOLOGICAL EXAMI 05/18/2017 KERWIN MICHAELS MD Ot 530.19 OTHER ESOPHAGITIS 05/18/2017 KERWIN MICHAELS MD Ot 535.40 OTH SPECIFIED GASTRITIS,W/O MENTION OF H 05/18/2017 KERWIN MICHAELS MD Ot 553.3 DIAPHRAGMATIC HERNIA 05/18/2017 KERWIN MICHAELS MD Ot 562.10 DIVERTICULOSIS COLON (W/O MENT OF HEMORR 05/18/2017 KERWIN MICHAELS MD Ot V12.72 PERSONAL HISTORY OF COLONIC POLYPS 05/18/2017 KERWIN MICHAELS MD Ot V16.0 FAMILY HX-GI MALIGNANCY 05/18/2017 KERWIN MICHAELS MD Ot V76.51 SCREEN MAL NEOP-COLON 05/18/2017 KERWIN MICHAELS MD Ot V72.84 EXAM PRE-OPERATIVE NOS 05/18/2017 HERNANDEZ, ASHDEN N CAMOUFLAGE ASSEMBLER Ot 562.10 DIVERTICULOSIS COLON (W/O MENT OF HEMORR 05/18/2017 DENIZ HERNANDEZ [employer]OUFLAGE ASSEMBLER Ot V76.12 OTH SCREEN MAMMO-MALIGN NEOPLASM OF [place]RE[place] 05/18/2017 DENIZ HERNANDEZ [employer]OUFLAGE ASSEMBLER Ot 724.2 LUMBAGO 05/18/2017 DENIZ HERNANDEZ [employer]OUFLAGE ASSEMBLER Ot 721.0 CERVICAL SPONDYLOSIS 05/18/2017 DENIZ HERNANDEZ [employer]OU[employer]AGE ASSEMBLER Ot 847.0 SPRAIN OF NECK 05/18/2017 DENIZ HERNANDEZ [employer]OUFLAGE ASSEMBLER Ot E000.8 OTHER EXTERNAL CAUSE STATUS 05/18/2017 DENIZ HERNANDEZ [employer]OUFLAGE ASSEMBLER Ot E928.9 ACCIDENT NOS 05/18/2017 KEEGAN TRUJILLO, BRAYAN Lott Ot 244.9 HYPOTHYROIDISM NOS 05/18/2017 KEEGAN TRUJILLO, BRAYAN Lott Ot 374.30 PTOSIS OF EYELID NOS 05/18/2017 KEEGAN TRUJILLO, BRAYAN Lott Ot 376.30 EXOPHTHALMOS NOS 05/18/2017 KEEGAN TRUJILLO, BRAYAN Lott Ot 376.30 EXOPHTHALMOS NOS 05/18/2017 KEEGAN TRUJILLO, BRAYAN Lott Ot Z12.31 ENCNTR SCREEN MAMMOGRAM FOR MALIGNANT NE 05/18/2017 DENIZ HERNANDEZ [employer]OUFLAGE ASSEMBLER Ot Z12.31 ENCNTR SCREEN MAMMOGRAM FOR MALIGNANT NE 05/18/2017 DENIZ HERNANDEZ [employer]OUFLAGE ASSEMBLER Ot Z12.31 ENCNTR SCREEN MAMMOGRAM FOR MALIGNANT NE 05/18/2017 KEEGAN TRUJILLO, BRAYAN Lott Ot M25.461 EFFUSION, RIGHT KNEE 05/18/2017 KEEGAN TRUJILLO, BRAYAN Lott Ot R60.0 LOCALIZED EDEMA 05/18/2017 KEEGAN TRUJILLO, BRAYAN Lott Ot V76.12 OTH SCREEN MAMMO-MALIGN NEOPLASM OF MIRE[place] 05/18/2017 MITCH [employer] WORKER Ot 793.89 OTH (ABN) FINDINGS ON RADIOLOGICAL EXAMI 05/18/2017 KERWIN MICHAELS MD Ot 530.19 OTHER ESOPHAGITIS 05/18/2017 KERWIN MICHAELS MD Ot 535.40 OTH SPECIFIED GASTRITIS,W/O MENTION OF H 05/18/2017 KERWIN MICHAELS MD Ot 553.3 DIAPHRAGMATIC HERNIA 05/18/2017 KERWIN MICHAELS MD Ot 562.10 DIVERTICULOSIS COLON (W/O MENT OF HEMORR 05/18/2017 KERWIN MICHAELS MD Ot V12.72 PERSONAL HISTORY OF COLONIC POLYPS 05/18/2017 BRANDO TRUJILLO, KERWIN Lott Ot V16.0 FAMILY HX-GI MALIGNANCY 05/18/2017 BRANDO TRUJILLO, KERWIN Lott Ot V76.51 SCREEN MAL NEOP-COLON 05/18/2017 KERWIN MICHAELS MD Ot V72.84 EXAM PRE-OPERATIVE NOS 05/18/2017 HERNANDEZDENIZ Tr CAMOUFLAGE ASSEMBLER Ot 562.10 DIVERTICULOSIS COLON (W/O MENT OF HEMORR 05/18/2017 DAVID LUHAZIZA Armando [employer]OUFLAGE ASSEMBLER Ot V76.12 OTH SCREEN MAMMO-MALIGN NEOPLASM OF [place]RE[place] 05/18/2017 DAVID LUHAZIZA Armando CAMOUFLAGE ASSEMBLER Ot 724.2 LUMBAGO 05/18/2017 HERNANDEZ LUHAZIZA Armando CAMOUFLAGE ASSEMBLER Ot 721.0 CERVICAL SPONDYLOSIS 05/18/2017 DAVID LUHAZIZA Armando CAMOUFLAGE ASSEMBLER Ot 847.0 SPRAIN OF NECK 05/18/2017 DAVID LUHAZIZA Armando CAMOUFLAGE ASSEMBLER Ot E000.8 OTHER EXTERNAL CAUSE STATUS 05/18/2017 DAVID LUHAZIZA Armando CAMOUFLAGE ASSEMBLER Ot E928.9 ACCIDENT NOS 05/18/2017 KEEGAN TRUJILLO, BRAYAN Lott Ot 244.9 HYPOTHYROIDISM NOS 05/18/2017 KEEGAN TRUJILLO, BRAYAN Lott Ot 374.30 PTOSIS OF EYELID NOS 05/18/2017 KEEGAN TRUJILLO, BRAYAN Lott Ot 376.30 EXOPHTHALMOS NOS 05/18/2017 BRAYAN ALLISON MD Ot 376.30 EXOPHTHALMOS NOS 05/18/2017 BRAYAN ALLISON MD Ot Z12.31 ENCNTR SCREEN MAMMOGRAM FOR MALIGNANT NE 05/18/2017 DAVID LUHAZIZA Armando CAMOUFLAGE ASSEMBLER Ot Z12.31 ENCNTR SCREEN MAMMOGRAM FOR MALIGNANT NE 05/18/2017 DENIZ HERNANDEZ [employer]OUFLAGE ASSEMBLER Ot Z12.31 ENCNTR SCREEN MAMMOGRAM FOR MALIGNANT NE 05/18/2017 KEEGAN TRUJILLO, BRAYAN Lott Ot M25.461 EFFUSION, RIGHT KNEE 05/18/2017 BRAYAN ALLISON MD Ot R60.0 LOCALIZED EDEMA 05/19/2017 WILBERT PETERS Ot E03.9 HYPOTHYROIDISM, UNSPECIFIED 05/19/2017 WILBERT PETERS Ot E78.00 PURE HYPERCHOLESTEROLEMIA, UNSPECIFIED 05/19/2017 WILBERT PETERS Ot F32.9 MAJOR DEPRESSIVE DISORDER, SINGLE EPISOD 05/19/2017 WILBERT PETERS Ot I10 ESSENTIAL (PRIMARY) HYPERTENSION 05/19/2017 WILBERT PETERS Ot I88.0 NONSPECIFIC MESENTERIC LYMPHADENITIS 05/19/2017 WILBERT PETERS Ot K21.9 GASTRO-ESOPHAGEAL REFLUX DISEASE WITHOUT 05/19/2017 WILBERT PETERS Ot R11.2 NAUSEA WITH VOMITING, UNSPECIFIED 05/19/2017 WILBERT PETERS Ot Z79.52 SENIOR CARE (CURRENT) USE OF SYSTEMIC STER 05/19/2017 WILBERT PETERS Ot Z80.0 FAMILY HISTORY OF MALIGNANT NEOPLASM OF 05/19/2017 WILBERT PETERS Ot Z80.6 FAMILY HISTORY OF LEUKEMIA 05/19/2017 WILBERT PETERS Ot Z82.49 FAMILY HX OF ISCHEM HEART DIS AND OTH DI 05/19/2017 WILBERT PETERS Ot Z87.19 PERSONAL HISTORY OF OTHER DISEASES OF TH 05/19/2017 WILBERT PETERS Ot Z87.440 PERSONAL HISTORY OF URINARY (TRACT) INFE 05/19/2017 WILBERT PETERS Ot Z88.1 ALLERGY STATUS TO OTHER ANTIBIOTIC AGENT 05/19/2017 WILBERT PETERS Ot Z90.49 ACQUIRED ABSENCE OF OTHER SPECIFIED PART 05/19/2017 WILBERT PETERS Ot Z90.89 ACQUIRED ABSENCE OF OTHER ORGANS 05/19/2017 WILBERT PETERS Ot E87.1 HYPO-OSMOLALITY AND HYPONATREMIA 05/19/2017 WILBERT PETERS Ot I88.0 NONSPECIFIC MESENTERIC LYMPHADENITIS 05/19/2017 WILBERT PETERS Ot R11.2 NAUSEA WITH VOMITING, UNSPECIFIED 05/19/2017 WILBERT PETERS Ot R19.7 DIARRHEA, UNSPECIFIED 05/29/2017 BRAYAN ALLISON MD Ot M25.461 EFFUSION, RIGHT KNEE 05/29/2017 BRAYAN ALLISON MD Ot R60.0 LOCALIZED EDEMA 06/09/2017 WILBERT PETERS Ot E87.1 HYPO-OSMOLALITY AND HYPONATREMIA 06/09/2017 WILBERT PETERS Ot I88.0 NONSPECIFIC MESENTERIC LYMPHADENITIS 06/09/2017 WILBERT PETERS Ot R11.2 NAUSEA WITH VOMITING, UNSPECIFIED 06/09/2017 WILBERT PETERS Ot R19.7 DIARRHEA, UNSPECIFIED 12/07/2017 BRAYAN ALLISON MD Ot V76.12 OTH SCREEN MAMMO-MALIGN NEOPLASM OF MIREYA 12/07/2017 MITCH [employer] WORKER Ot 793.89 OTH (ABN) FINDINGS ON RADIOLOGICAL EXAMI 12/07/2017 BRANDO TRUJILLO, KERWIN Lott Ot 530.19 OTHER ESOPHAGITIS 12/07/2017 BRANDO TRUJILLO, KERWIN Lott Ot 535.40 OTH SPECIFIED GASTRITIS,W/O MENTION OF H 12/07/2017 KERWIN MICHAELS MD Ot 553.3 DIAPHRAGMATIC HERNIA 12/07/2017 KERWIN MICHAELS MD Ot 562.10 DIVERTICULOSIS COLON (W/O MENT OF HEMORR 12/07/2017 KERWIN MICHAELS MD Ot V12.72 PERSONAL HISTORY OF COLONIC POLYPS 12/07/2017 KERWIN MICHAELS MD Ot V16.0 FAMILY HX-GI MALIGNANCY 12/07/2017 KERWIN MICHAELS MD Ot V76.51 SCREEN MAL NEOP-COLON 12/07/2017 KERWIN MICHAELS MD Ot V72.84 EXAM PRE-OPERATIVE NOS 12/07/2017 DENIZ HERNANDEZ [employer]OUFLAGE ASSEMBLER Ot 562.10 DIVERTICULOSIS COLON (W/O MENT OF HEMORR 12/07/2017 DENIZ HERNANDEZ [employer]OUFLAGE ASSEMBLER Ot V76.12 OTH SCREEN MAMMO-MALIGN NEOPLASM OF [place]RE[place] 12/07/2017 DENIZ HERNANDEZ CAMOUFLAGE ASSEMBLER Ot 724.2 LUMBAGO 12/07/2017 EDNIZ HERNANDEZ CAMOUFLAGE ASSEMBLER Ot 721.0 CERVICAL SPONDYLOSIS 12/07/2017 DENIZ HERNANDEZ CAMOUFLAGE ASSEMBLER Ot 847.0 SPRAIN OF NECK 12/07/2017 DENIZ HERNANDEZ CAMOUFLAGE ASSEMBLER Ot E000.8 OTHER EXTERNAL CAUSE STATUS 12/07/2017 DENIZ HERNANDEZ CAMOUFLAGE ASSEMBLER Ot E928.9 ACCIDENT NOS 12/07/2017 BRAYAN ALLISON MD Ot 244.9 HYPOTHYROIDISM NOS 12/07/2017 BRAYAN ALLISON MD Ot 374.30 PTOSIS OF EYELID NOS 12/07/2017 BRAYAN ALLISON MD Ot 376.30 EXOPHTHALMOS NOS 12/07/2017 BRAYAN ALLISON MD Ot 376.30 EXOPHTHALMOS NOS 12/07/2017 BRAYAN ALLISON MD Ot Z12.31 ENCNTR SCREEN MAMMOGRAM FOR MALIGNANT NE 12/07/2017 DAVID LUHAZIZA Armando [employer]OUFLAGE ASSEMBLER Ot Z12.31 ENCNTR SCREEN MAMMOGRAM FOR MALIGNANT NE 12/07/2017 DENIZ HERNANDEZ CAMOUFLAGE ASSEMBLER Ot Z12.31 ENCNTR SCREEN MAMMOGRAM FOR MALIGNANT NE 12/07/2017 BRAYAN ALLISON MD Ot M25.461 EFFUSION, RIGHT KNEE 12/07/2017 BRAYAN ALLISON MD Ot R60.0 LOCALIZED EDEMA 12/07/2017 KARSTEN PETERSEN Joel Ot E87.1 HYPO-OSMOLALITY AND HYPONATREMIA 12/07/2017 KARSTEN PETERSEN L Ot I88.0 NONSPECIFIC MESENTERIC LYMPHADENITIS 12/07/2017 WILBERT PETERS L Ot R11.2 NAUSEA WITH VOMITING, UNSPECIFIED 12/07/2017 WILBERT PETERS L Ot R19.7 DIARRHEA, UNSPECIFIED 12/07/2017 BRAYAN ALLISON MD Ot Z12.31 ENCNTR SCREEN MAMMOGRAM FOR MALIGNANT NE 12/09/2017 BRAYAN ALLISON MD Ot Z12.31 ENCNTR SCREEN MAMMOGRAM FOR MALIGNANT NE 12/30/2017 BRAYAN ALLISON MD Ot Z12.31 ENCNTR SCREEN MAMMOGRAM FOR MALIGNANT NE 03/17/2018 DENIZ HERNANDEZ CAMOUFLAGE ASSEMBLER Ot 562.10 DIVERTICULOSIS COLON (W/O MENT OF HEMORR 03/17/2018 DAVID LUHAZIZA Armando CAMOUFLAGE ASSEMBLER Ot V76.12 OTH SCREEN MAMMO-MALIGN NEOPLASM OF [place]RE[place] 03/17/2018 DAVID LUHAZIZA Armando CAMOUFLAGE ASSEMBLER Ot 724.2 LUMBAGO 03/17/2018 DENIZ HERNANDEZ CAMOUFLAGE ASSEMBLER Ot 721.0 CERVICAL SPONDYLOSIS 03/17/2018 DENIZ HERNANDEZ CAMOUFLAGE ASSEMBLER Ot 847.0 SPRAIN OF NECK 03/17/2018 DENIZ HERNANDEZ CAMOUFLAGE ASSEMBLER Ot E000.8 OTHER EXTERNAL CAUSE STATUS 03/17/2018 DENIZ HERNANDEZ CAMOUFLAGE ASSEMBLER Ot E928.9 ACCIDENT NOS 03/17/2018 BRAYAN ALLISON MD Ot 244.9 HYPOTHYROIDISM NOS 03/17/2018 BRAYAN ALLISON MD Ot 374.30 PTOSIS OF EYELID NOS 03/17/2018 BRAYAN ALLISON MD Ot 376.30 EXOPHTHALMOS NOS 03/17/2018 BRAYAN ALLISON MD Ot 376.30 EXOPHTHALMOS NOS 03/17/2018 KEEGAN TRUJILLO, BRAYAN Lott Ot Z12.31 ENCNTR SCREEN MAMMOGRAM FOR MALIGNANT NE 03/17/2018 DAVIDLUHAZIZA Armando CAMOUFLAGE ASSEMBLER Ot Z12.31 ENCNTR SCREEN MAMMOGRAM FOR MALIGNANT NE 03/17/2018 DENIZ HERNANDEZ CAMOUFLAGE ASSEMBLER Ot Z12.31 ENCNTR SCREEN MAMMOGRAM FOR MALIGNANT NE 03/17/2018 KEEGAN TRUJILLO, BRAYAN Lott Ot M25.461 EFFUSION, RIGHT KNEE 03/17/2018 KEEGAN TRUJILLO, BRAYAN Lott Ot R60.0 LOCALIZED EDEMA 03/17/2018 WILBERT PETERS L Ot E87.1 HYPO-OSMOLALITY AND HYPONATREMIA 03/17/2018 KARSTEN PETERSEN L Ot I88.0 NONSPECIFIC MESENTERIC LYMPHADENITIS 03/17/2018 KARSTEN PETERSEN L Ot R11.2 NAUSEA WITH VOMITING, UNSPECIFIED 03/17/2018 KARSTEN PETERSEN L Ot R19.7 DIARRHEA, UNSPECIFIED 03/17/2018 KEEGAN TRUJILLO, BRAYAN Lott Ot Z12.31 ENCNTR SCREEN MAMMOGRAM FOR MALIGNANT NE 03/19/2018 LOTT DO, MARIELLA C Ot D25.1 INTRAMURAL LEIOMYOMA OF UTERUS 03/19/2018 LOTT DO, MARIELLA C Ot R10.32 LEFT LOWER QUADRANT PAIN 03/24/2018 LOTT DO, MARIELLA C Ot D25.1 INTRAMURAL LEIOMYOMA OF UTERUS 03/24/2018 LOTT DO, MARIELLA C Ot R10.32 LEFT LOWER QUADRANT PAIN 04/12/2018 LOTT DO, MARIELLA C Ot D25.1 INTRAMURAL LEIOMYOMA OF UTERUS 04/12/2018 LOTT DO, MARIELLA C Ot R10.32 LEFT LOWER QUADRANT PAIN 04/12/2018 LOTT DO, MARIELLA C Ot Z01.818 ENCOUNTER FOR OTHER PREPROCEDURAL EXAMIN 04/13/2018 LOTT DO, MARIELLA C Ot Z01.818 ENCOUNTER FOR OTHER PREPROCEDURAL EXAMIN Procedures There is no data. Results Test Result Range Complete urinalysis with reflex to culture - 05/17/17 20:08 Urine color determination YELLOW NRG Urine clarity determination CLEAR NRG Urine pH measurement by test strip 5 5-9 Specific gravity of urine by test strip 1.015 1.016- 1.022 Urine protein assay by test strip, semi-quantitative NEGATIVE NEGATIVE Urine glucose detection by automated test strip NEGATIVE NEGATIVE Erythrocytes detection in urine sediment by light microscopy NEGATIVE NEGATIVE Urine ketones detection by automated test strip NEGATIVE NEGATIVE Urine nitrite detection by test strip NEGATIVE NEGATIVE Urine total bilirubin detection by test strip NEGATIVE NEGATIVE Urine urobilinogen measurement by automated test strip (mass/volume) NORMAL NORMAL Urine leukocyte esterase detection by dipstick 1+ NEGATIVE Automated urine sediment erythrocyte count by microscopy (number/high power field) RARE NRG Automated urine sediment leukocyte count by microscopy (number/high power field ) [HPF] NRG Bacteria detection in urine sediment by light microscopy NEGATIVE NRG Squamous epithelial cells detection in urine sediment by light microscopy 0-2 NRG Crystals detection in urine sediment by light microscopy NONE NRG Casts detection in urine sediment by light microscopy PRESENT NRG Mucus detection in urine sediment by light microscopy NEGATIVE NRG Complete urinalysis with reflex to culture NO NRG Hyaline casts detection in urine sediment by light microscopy RARE NRG Renal epithelial cells detection in urine sediment by light microscopy NONE NRG Complete blood count (CBC) with automated white blood cell (WBC) differential - 05/17/17 21:25 Blood leukocytes automated count (number/volume) 7.1 10*3/uL 4.3-11.0 Blood erythrocytes automated count (number/volume) 4.66 10*6/uL 4.35-5.85 Venous blood hemoglobin measurement (mass/volume) 13.9 g/dL 11.5-16.0 Blood hematocrit (volume fraction) 40 % 35-52 Automated erythrocyte mean corpuscular volume 86 [foz_us] 80-99 Automated erythrocyte mean corpuscular hemoglobin (mass per erythrocyte) 30 pg 25-34 Automated erythrocyte mean corpuscular hemoglobin concentration measurement ( mass/volume) 35 g/dL 32-36 Automated erythrocyte distribution width ratio 14.4 % 10.0-14.5 Automated blood platelet count (count/volume) 162 10*3/uL 130-400 Automated blood platelet mean volume measurement 11.4 [foz_us] 7.4-10.4 Automated blood neutrophils/100 leukocytes 92 % 42-75 Automated blood lymphocytes/100 leukocytes 3 % 12-44 Blood monocytes/100 leukocytes 3 % 0-12 Automated blood eosinophils/100 leukocytes 2 % 0-10 Automated blood basophils/100 leukocytes 0 % 0-10 Blood neutrophils automated count (number/volume) 6.6 10*3 1.8-7.8 Blood lymphocytes automated count (number/volume) 0.2 10*3 1.0-4.0 Blood monocytes automated count (number/volume) 0.2 10*3 0.0-1.0 Automated eosinophil count 0.1 10*3/uL 0.0-0.3 Automated blood basophil count (count/volume) 0.0 10*3/uL 0.0-0.1 Blood manual differential performed detection - 05/17/17 21:25 Blood monocytes/100 leukocytes 3 % NRG Manual blood segmented neutrophils/100 leukocytes 86 % NRG Blood band neutrophils/100 leukocytes 6 % NRG Manual blood lymphocytes/100 leukocytes 3 % NRG Manual eosinophils/100 leukocytes in nose 0 % NRG Manual blood basophils/100 leukocytes 0 % NRG Blood lymphocytes variant/100 leukocytes 2 % NRG Blood ovalocytes detection by light microscopy SLIGHT NRG Blood poikilocytosis detection by light microscopy SLIGHT NRG Comprehensive metabolic panel - 05/17/17 21:25 Serum or plasma sodium measurement (moles/volume) 129 mmol/L 135-145 Serum or plasma potassium measurement (moles/volume) 3.9 mmol/L 3.6-5.0 Serum or plasma chloride measurement (moles/volume) 96 mmol/L 98-107 Carbon dioxide 20 mmol/L 21-32 Serum or plasma anion gap determination (moles/volume) 13 mmol/L 5-14 Serum or plasma urea nitrogen measurement (mass/volume) 14 mg/dL 7-18 Serum or plasma creatinine measurement (mass/volume) 0.96 mg/dL 0.60-1.30 Serum or plasma urea nitrogen/creatinine mass ratio 15 NRG Serum or plasma creatinine measurement with calculation of estimated glomerular filtration rate 56 NRG Serum or plasma glucose measurement (mass/volume) 106 mg/dL 70-105 Serum or plasma calcium measurement (mass/volume) 9.2 mg/dL 8.5-10.1 Serum or plasma total bilirubin measurement (mass/volume) 0.4 mg/dL 0.1-1.0 Serum or plasma alkaline phosphatase measurement (enzymatic activity/volume) 63 U/L 40-136 Serum or plasma aspartate aminotransferase measurement (enzymatic activity/ volume) 33 U/L 5-34 Serum or plasma alanine aminotransferase measurement (enzymatic activity/volume ) 31 U/L 0-55 Serum or plasma protein measurement (mass/volume) 6.5 g/dL 6.4-8.2 Serum or plasma albumin measurement (mass/volume) 3.9 g/dL 3.2-4.5 Lipase - 05/17/17 21:25 Lipase 29 U/L 8-78 Serum or plasma C reactive protein measurement (mass/volume) - 05/17/17 21:25 Serum or plasma C reactive protein measurement (mass/volume) 1.36 mg /dL 0.00-0.50 Whole blood basic metabolic panel - 05/18/17 13:27 Serum or plasma sodium measurement (moles/volume) 126 mmol/L 135-145 Serum or plasma potassium measurement (moles/volume) 3.5 mmol/L 3.6-5.0 Serum or plasma chloride measurement (moles/volume) 95 mmol/L 98-107 Carbon dioxide 21 mmol/L 21-32 Serum or plasma anion gap determination (moles/volume) 10 mmol/L 5-14 Serum or plasma urea nitrogen measurement (mass/volume) 10 mg/dL 7-18 Serum or plasma creatinine measurement (mass/volume) 0.98 mg/dL 0.60-1.30 Serum or plasma urea nitrogen/creatinine mass ratio 10 NRG Serum or plasma creatinine measurement with calculation of estimated glomerular filtration rate 54 NRG Serum or plasma glucose measurement (mass/volume) 103 mg/dL 70-105 Serum or plasma calcium measurement (mass/volume) 8.2 mg/dL 8.5-10.1 Encounters ACCT No. Visit Date/Time Discharge Status Pt. Type Provider Facility Loc./Unit Complaint [id number] 04/12/2018 08:44:00 04/12/2018 12:37:00 DIS Outpatient MARIELLA LOTT DO [facility] PREOP ENDOMETRIAL POLYP [id number] 03/18/2018 12:56:00 03/18/2018 23:59:59 CLS Outpatient MARIELLA LOTT DO [facility] RAD LLQ ABD PAIN [id number] 12/07/2017 10:31:00 12/07/2017 23:59:59 CLS Outpatient BRAYAN ALLISON MD [facility] RAD SCREENING [id number] 05/18/2017 13:10:00 05/18/2017 23:59:59 CLS Outpatient WILBERT PETERS [facility] LAB N/V/D R19.7 R11, MESENTERIC LYMPHADENITIS I88.0 [id number] 05/17/2017 19:56:00 05/17/2017 23:20:00 DIS Emergency WILBERT PETERS [facility] ER UTI SYMPTOMS VOMITING/ CHILLS [id number] 05/06/2017 14:52:00 05/06/2017 23:59:59 CLS Outpatient BRAYAN ALLISON MD [facility] RAD SWELLING,MASS AND LUMP,RIGHT LOWER LIMB [id number] 12/05/2016 09:52:00 12/05/2016 23:59:59 CLS Outpatient DENIZ HERNANDEZ APRN [facility] RAD SCREENING Z12.31 [id number] 12/04/2015 10:22:00 12/04/2015 23:59:59 CLS Outpatient DENIZ HERNANDEZ APRN [facility] RAD SCREENING [id number] 11/24/2014 10:28:00 11/24/2014 23:59:59 CLS Outpatient BRAYAN ALLISON MD [facility] RAD SCREENING [id number] 10/11/2014 13:29:00 10/11/2014 23:59:59 CLS Outpatient BRAYAN ALLISON MD [facility] RAD EXOPHTHALMOS [id number] 09/14/2014 14:10:00 09/14/2014 23:59:59 CLS Outpatient BRAYAN ALLISON MD [facility] RAD DOUBLE VISOIN, BULGING OF LT EYE [id number] 09/12/2014 12:28:00 09/12/2014 23:59:59 CLS Outpatient BRAYAN ALLISON MD [facility] RAD SWELLING OF LT EYE, DOUBLE VISION [id number] 08/28/2014 11:59:00 08/31/2014 16:07:00 DIS Inpatient BRAYAN ALLISON MD [facility] SURGICAL UTI;INTRACTABLE N/V [id number] 08/27/2014 10:19:00 08/27/2014 12:56:00 DIS Emergency ASTRID MILLER MD [facility] ER HEADACHE,EYE SWELLING [id number] 11/30/2013 10:41:00 11/30/2013 23:59:59 CLS Outpatient DENIZ HERNANDEZ CAMOUFLAGE ASSEMBLER [facility] RAD LOW BACK PAIN [id number] 11/25/2013 08:25:00 11/25/2013 23:59:59 CLS Outpatient DENIZ HERNANDEZ [employer]OUFLAGE ASSEMBLER [facility] RAD SPRAIN OF NECK [id number] 11/22/2013 07:43:00 11/22/2013 23:59:59 CLS Outpatient DENIZ HERNANDEZ [employer]OUFLAGE ASSEMBLER [facility] RAD ABDOMINAL PAIN [id number] 07/07/2012 07:55:00 07/07/2012 23:59:59 CLS Outpatient MITCH NEWBERRY [facility] RAD ABN MAMMO [id number] 06/29/2012 08:31:00 06/29/2012 23:59:59 CLS Outpatient KERWIN MICHAELS MD [facility] COLON POLYPS,REFLUX [id number] 06/24/2012 07:49:00 06/24/2012 23:59:59 CLS Outpatient KERWIN MICHAELS MD [facility] PREOP HISTORY OF POLYPS/ REFLUX [id number] 06/18/2012 10:02:00 06/18/2012 23:59:59 CLS Outpatient BRAYAN ALLISON MD [facility] RAD SCREENING [id number] 04/13/2018 12:39:00 ACT Outpatient MARIELLA LOTT DO [facility] ENDOMETRIAL POLYP [id number] 08/31/2014 13:23:00 Document Registration [id number] 02/14/2010 09:03:00 Document Registration [id number] 01/07/2010 09:29:00 Document Registration
[2018-04-13] MEDS ORDERED: ceFAZolin INJECTION 1,000 MG in WATER (STERILE) FOR INJECTION 10 ML IV ONE (13:30)
[2018-04-13] MEDS ORDERED: metroNIDAZOLE 500MG/100ML IVPB 100 ML IV ONE (13:30)
--- NOTE | 2018-04-13 13:37 | Progress Note-Pre Operative ---
Pre-Operative Progress Note H&P Reviewed The H&P was reviewed, patient examined and no changes noted. Date Seen by Provider: Apr 13, 2018 Time Seen by Provider: 13:30 Date H&P Reviewed: Apr 13, 2018 Time H&P Reviewed: 13:20 Pre-Operative Diagnosis: endometrial polyp MARIELLA LOTT DO Apr 13, 2018 13:37
--- NOTE | 2018-04-13 14:06 | Operative Report ---
Operative Report Date of Procedure/Surgery Apr 13, 2018 Surgeon (s) MARIELLA LOTT DO Pipeliner (s): na Post-Operative Diagnosis thickened endometrium, post menopausal bleeding, endometrial polyp Procedure Performed Hysteroscopy, dilation and curettage Description of Procedure Anesthesia Type: General Estimated blood loss (mL): minimal Specimen(s) collected/removed endometrial curettings Description of the Procedure With informed consent the patient was taken to the operating room where general anesthesia was found the be adequate. She was prepped and draped in the usual sterile fashion in the dorsolithotomy position. The bladder was drained with a straight cath of clear yellow urine. A speculum was placed in the vagina and the cervix grasped with a tenaculum. The uterus was gently sounded to 6 cm and the cervix was gently dilated with Oliver dilators. I now did a hysteroscopy. I initially was concerned that I had a false passage because I could not initially distend the uterus with fluid. But then determined that it was synechiae in the cavity. I then did a gentle curettage to remove tissue for pathology. There was a nodule removed with a curette and this was sent for pathology. I then noted there was good hemostasis. the instruments were removed and the patient was awakened and taken to recovery in a stable condition Findings of the Procedure smooth post menopausal atrophic endometrium with a nodule consistent with possible fibroid vs polyp. 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 Allergies and Home Medications Allergies Coded Allergies: atorvastatin (Verified Allergy, Unknown, 08/28/14) simvastatin (Verified Allergy, Unknown, 08/28/14) Home Medications Acetaminophen 500 Mg Tablet, 1,000 MG PO TID PRN for PAIN-MILD Prescribed by: MARIELLA LOTT on 04/13/18 1446 Amlodipine/Benazepril 1 Cap Cap, 1 CAP PO DAILY, (Reported) Aspirin 81 Mg Tablet.dr, 81 MG PO DAILY, (Reported) Atenolol 50 Mg Tablet, 50 MG PO HS, (Reported) Citalopram Hydrobromide 20 Mg Tablet, 20 MG PO DAILY, (Reported) Levothyroxine Sodium 75 Mcg Tablet, 75 MCG PO DAILY, (Reported) Omeprazole 40 Mg Capsule.dr, 40 MG PO DAILY, (Reported) Oxycodone HCl 5 Mg Tablet, 5 MG PO Q6H PRN for BREAKTHROUGH PAIN Prescribed by: MARIELLA LOTT on 04/13/18 1446 Patient Home Medication List Home Medication List Reviewed: Yes MARIELLA LOTT DO Apr 13, 2018 2:06 pm
[2018-04-13] MEDS ORDERED: GLYCOPYRROLATE 0.2 MG/ML (ROBINUL) 2 ML VIAL ONE (14:14)
[2018-04-13] MEDS ORDERED: fentaNYL INJECTION 100 MCG/2 ML AMP IVP ONE (14:45)
[2018-04-13] MEDS ORDERED: ONDANSETRON 4 MG/2 ML (SDV) Z0FRAN IVP PRN (14:45)
[2018-04-13] MEDS ORDERED: ACET-2267 PO (14:46)
[2018-04-13] MEDS ORDERED: OXYC-529 PO (14:46)
--- NOTE | 2018-04-13 14:48 | Discharge Inst-Women's Service ---
Discharge Inst-Women's Serv Depart Medication/Instructions New, Converted or Re-Newed RX: RX on Chart Final Diagnosis ENDOMETRIAL POLYP POST MENOPAUSAL BLEEDING Consults/Follow Up Additional Follow Up: Yes (7-10 DAYS WITH OREN) Activity Activity: Activity as Tolerated Driving Instructions: No Driving for 24 Hours NO SMOKING: NO SMOKING Nothing Inside Vagina: No Douching, No [place], No Tampons Diet Discharge Diet: No Restrictions Symptoms to Report to : Swelling Increased, Bleeding Excessive, Pain Increased, Fever Over 101 Degrees F, Vaginal Bleeding Increase, Vaginal Discharge Foul For Any Problems or Questions: Contact Your Physician MARIELLA LOTT DO Apr 13, 2018 14:48
[2018-04-13] MEDS ORDERED: KETOROLAC 30 MG/ML VIAL IV ONE (15:00)
[2018-04-13] MEDS ORDERED: KETOROLAC 15 MG/ML VIAL IVP ONE (15:00)
[2018-04-13 15:15] VITALS: BP 148/101
[2018-04-13 15:45] VITALS: BP 151/82
[2018-04-13] MEDS ORDERED: ACETAMINOPHEN 500 MG TAB (TYLENOL) PO ONE (15:45)
[2018-04-13 16:15] VITALS: BP 151/82
== END 2018-04-13 16:15 | disposition home or self-care (01) ==
LOC: SDC 12:39
PROVIDERS: ATTEND Obstetrics & Gynecology
DX: N95.0 Postmenopausal bleeding (principal); N84.0 Polyp of corpus uteri; R93.89 Abnormal findings on diagnostic imaging of other specified body structures; I10 Essential (primary) hypertension; E03.9 Hypothyroidism, unspecified; K21.9 Gastro-esophageal reflux disease without esophagitis; K44.9 Diaphragmatic hernia without obstruction or gangrene; Z87.891 Personal history of nicotine dependence; Z79.82 Long term (current) use of aspirin; Z79.899 Other long term (current) drug therapy
CPT/HCPCS: 87081; 88305

== ENCOUNTER → 2018-11-24 | Outpatient (CLI) | payer MEDICARE, OTHER ==
[~2018-11-24] MED LIST changes: +ACET-2267 PO; +OXYC-529 PO
--- NOTE | 2018-11-24 10:28 | Diagnostic Imaging Report ---
INDICATION: Right hip and right knee pain. Time of exam: 10:22 AM AP view of the pelvis and 2 views of the right hip were obtained. Femoral acetabular alignment is normal bilaterally. Both hips demonstrate the femoral heads and necks to be intact. No fractures are seen. The rami appear to be intact. SI joints and and symphysis are not widened. IMPRESSION: No acute bony abnormality is detected. Dictated by: Dictated on workstation # [id number]
--- NOTE | 2018-11-24 10:28 | Diagnostic Imaging Report ---
INDICATION: Knee pain. 3 views were obtained. FINDINGS: The alignment is normal. There are mild degenerative changes. There is no fracture or dislocation. Soft tissues are unremarkable. IMPRESSION: Mild degenerative changes otherwise unremarkable. Dictated by: Dictated on workstation # [id number]
== END ==
LOC: RAD 09:55
PROVIDERS: ATTEND Nurse Practitioner Family
DX: M17.11 Unilateral primary osteoarthritis, right knee (principal); M25.551 Pain in right hip
CPT/HCPCS: 73562

== ENCOUNTER → 2019-01-27 | Outpatient (CLI) | payer MEDICARE, OTHER ==
--- NOTE | 2019-01-27 12:58 | Diagnostic Imaging Report ---
PROCEDURE: MRI right joint lower extremity without contrast. TECHNIQUE: Multiplanar, multisequence non contrast-enhanced MRI of the right lower extremity was accomplished. INDICATION: Fall with continued right knee pain. FINDINGS: There is a large joint effusion. There is a large area of marrow edema involving the medial femoral condyle and medial tibial plateau. Significant degenerative changes are present as well involving the medial compartment with joint space narrowing and marginal spurring. There does appear to be a probable subchondral fracture involving the medial femoral condyle. No other marrow signal abnormalities are seen. The ACL and PCL are intact. The medial and lateral collateral ligament complexes appear to be intact. The medial meniscus is subluxed medially. There is diffuse signal throughout the medial meniscus which is also somewhat thinned particularly in the posterior horn consistent with chronic degeneration. There is also signal throughout the lateral meniscus, both anterior and posterior horns as well as the body. Signal comes in close proximity to the superior surface and suspicious for a tear. No displaced meniscal fragment is identified. Cystic changes are noted adjacent to the PCL, likely representing ganglions. Extensor mechanism is unremarkable. IMPRESSION: 1. Large joint effusion. 2. Moderate edema involving the medial femoral condyle and medial tibial plateau. There appears to be a small subchondral fracture of the medial femoral condyle. 3. Significant medial compartmental degenerative changes. 4. Chronic changes of the medial and lateral menisci. Medial meniscus is subluxed medially. There is signal throughout both medial and lateral menisci which could be on the basis of chronic degeneration. There is a probable tear, acuity indeterminate involving the lateral meniscus. 5. No ligamentous injury is seen. 6. Probable ganglion cyst adjacent to the PCL. Dictated by: Dictated on workstation # [id number]
== END ==
LOC: RAD 08:05
PROVIDERS: ATTEND Orthopaedic Surgery
DX: M23.8X1 Other internal derangements of right knee (principal); M94.261 Chondromalacia, right knee; M25.461 Effusion, right knee; M17.12 Unilateral primary osteoarthritis, left knee
CPT/HCPCS: 73721

== ENCOUNTER 2020-09-21 05:28 | Outpatient (RCR) | payer MEDICARE, OTHER ==
[~2020-09-21] VITALS: Ht 167.6 cm; Wt 79.4 kg
[~2020-09-21 05:28] MED LIST changes: +LEVO88CA4 PO; +MULT-1136 PO; +OMEP40CA6 PO; +OXC5T PO; -OXYC-529 PO
== END 2020-09-21 09:41 | disposition home or self-care (01) ==
LOC: PREOP 05:28
PROVIDERS: ATTEND Surgery
DX: Z01.818 Encounter for other preprocedural examination (principal); Z20.822 Contact with and (suspected) exposure to COVID-19; R13.10 Dysphagia, unspecified; R19.5 Other fecal abnormalities
CPT/HCPCS: 87635

== ENCOUNTER 2020-09-25 07:42 | Day surgery (SDC) | payer MEDICARE, OTHER ==
[~2020-09-25] VITALS: Ht 167.6 cm; Wt 79.4 kg
[2020-09-25] VITALS (9 sets, daily range): BP systolic 85–126; BP diastolic 51–67
[2020-09-25] MEDS ORDERED: LACTATED RINGERS 1,000 ML IV STA (07:54)
[2020-09-25] MEDS ORDERED: HURRICAINE EXT TUBE (BENZOCAINE) XX PRN (08:00)
--- NOTE | 2020-09-25 08:36 | Progress Note-Pre Operative ---
Pre-Operative Progress Note H&P Reviewed The H&P was reviewed, patient examined and no changes noted. Date Seen by Provider: Sep 25, 2020 Time Seen by Provider: 08:35 Date H&P Reviewed: Sep 25, 2020 Time H&P Reviewed: 08:36 Pre-Operative Diagnosis: llq abd pain, dysphagia, hx polyps, gerd, change in bowel habits MATHEW MESSER DO Sep 25, 2020 08:36
[2020-09-25] MEDS ORDERED: MIDAZOLAM 2 MG/2 ML (VERSED) VIAL ONE (08:38)
[2020-09-25] MEDS ORDERED: PROPOFOL INJECTION 50 ML IV ONE (08:38)
--- NOTE | 2020-09-25 09:23 | Progress Note-Post Operative ---
Post-Operative Progess Note Surgeon (s)/Hand Cooper Helper (s) Surgeon MATHEW MESSER DO Hand Cooper Helper: na Pre-Operative Diagnosis llq abd pain, dysphagia, hx polyps, gerd, change in bowel habits Post-Operative Diagnosis hiatal hernia, diverticulosis, colon polyps x 4 Procedure & Operative Findings Date of Procedure 09/25/20 Procedure Performed/Findings egd c biopsies, colonoscopy c hot bx polypectomy x 4 Anesthesia Type per librarian head Estimated Blood Loss Estimated blood loss (mL): none Specimens/Packing Specimens Removed antrum, ge, colon polyps MATHEW MESSER DO Sep 25, 2020 09:23
--- NOTE | 2020-09-25 09:24 | Discharge Inst-Simple/Standard ---
Discharge Inst-Standard Patient Instructions/Follow Up Plan of Care/Instructions/FU: 2 -3 weeks Tavo Activity as Tolerated: Yes Discharge Diet: Regular Diet (high fiber) MATHEW MESSER DO Sep 25, 2020 09:24
--- NOTE | 2020-09-25 11:02 | OPERATIVE REPORT ---
DATE OF SERVICE: 09/25/2020 PREOPERATIVE DIAGNOSES: Left lower quadrant abdominal pain, dysphagia, history of polyps, GERD and change in bowel habits. POSTOPERATIVE DIAGNOSES: Hiatal hernia, diverticulosis, colon polyps x4. PROCEDURE: EGD with biopsies, colonoscopy with hot biopsy polypectomy x4. SURGEON: Mathew Vo DO ANESTHESIA: Per POWER PLANT MANAGER. ESTIMATED BLOOD LOSS: None. COMPLICATIONS: None. SPECIMENS: Antrum, GE junction, colon polyps. INDICATIONS: The patient is an 85-year-old female who has had left lower quadrant abdominal pain, dysphagia, history of polyps, GERD and change in her bowel habits. She understands risks and benefits of procedures and wished to proceed. Consent was signed in the chart. DESCRIPTION OF PROCEDURE: The patient was taken to the endoscopy suite, placed in left lateral recumbent position. Timeout was performed. Scope was inserted in mouth, down the esophagus, stomach and into the duodenum without difficulty. There were no polyps, masses or ulcerations within the duodenum. Scope was slowly retracted back into the stomach where it was further insufflated. Slight erythematous changes in the antrum. Biopsy of the antrum was obtained. No other pathology noted. Scope was retroflexed noting a small hiatal hernia, no other pathology noted. Scope was returned to its normal position, slowly withdrawn to distal esophagus. Biopsy of the GE junction was obtained. No polyps, masses or ulcerations. Scope was slowly retracted back until completely removed. Digital rectal exam was performed. There were no palpable polyps, masses or ulcerations. Scope was inserted in the rectum and advanced all the way to cecum with minimal difficulty. Prep was adequate. Scope was then slowly retracted back. No polyps, masses or ulcerations within the cecum. In the ascending colon, a small polyp was present, which hot biopsy polypectomy was performed. Scope was then continuously retracted back to transverse colon, another polyp was present, which hot biopsy polypectomy was performed. Scope was then continuously retracted back. No polyps, masses or ulcerations within the remainder of the transverse and descending colon. In the sigmoid colon, two small polyps were present, which hot biopsy polypectomy was performed. Scope was then continuously retracted back in the rectum, it was also retroflexed noting no other pathology. The patient tolerated procedure well without any complications. She was taken to recovery room in stable condition. RECOMMENDATIONS: The patient recommended high fiber diet. Continue on current medications. We would recommend patient to follow up in the office in 2 weeks to discuss pathology results. Significant diverticulosis within the sigmoid colon, which I think may be causing some of her discomfort. We would recommend a high fiber diet to see if this cause any improvement of her symptoms. Job ID: [id number] DocumentID: [id number] Dictated Date: 09/25/2020 09:27:19 Internal Control Consultant Date: 09/25/2020 11:02:16 Dictated By: MATHEW VO DO
--- NOTE | 2020-09-25 14:55 | Anesthesia-General Post-Op ---
MAC Patient Condition Mental Status/LOC: Same as Preop Cardiovascular: Satisfactory Nausea/Vomiting: Absent Respiratory: Satisfactory Pain: Controlled Complications: Absent Post Op Complications Complications None Follow Up Care/Instructions Patient Instructions None needed. Anesthesiology Discharge Order Discharge Order Patient is doing well, no complaints, stable vital signs, no apparent adverse anesthesia problems. No complications reported per nursing. JAROD SAMUELS CRNA Sep 25, 2020 14:55
== END 2020-09-25 10:30 | disposition home or self-care (01) ==
LOC: ENDO 07:42
PROVIDERS: ATTEND Surgery
DX: D12.3 Benign neoplasm of transverse colon (principal); D12.2 Benign neoplasm of ascending colon; K31.9 Disease of stomach and duodenum, unspecified; K57.30 Diverticulosis of large intestine without perforation or abscess without bleeding; K44.9 Diaphragmatic hernia without obstruction or gangrene; K21.9 Gastro-esophageal reflux disease without esophagitis; I10 Essential (primary) hypertension; E03.9 Hypothyroidism, unspecified; F32.9 Major depressive disorder, single episode, unspecified; Z90.49 Acquired absence of other specified parts of digestive tract; Z79.82 Long term (current) use of aspirin; Z79.899 Other long term (current) drug therapy; Z79.890 Hormone replacement therapy; Z90.89 Acquired absence of other organs; Z79.02 Long term (current) use of antithrombotics/antiplatelets
CPT/HCPCS: 88305

== ENCOUNTER 2021-02-03 22:45 | Emergency (ER) | payer MEDICARE, OTHER ==
[~2021-02-03] VITALS: Ht 168 cm; Wt 77.0 kg
--- NOTE | 2021-02-03 23:24 | Diagnostic Imaging Report ---
INDICATION: Left hip pain AP view pelvis and 2 views of the left hip show no fracture, dislocation or other acute abnormalities. IMPRESSION: Negative pelvis and left hip Dictated by: Dictated on workstation # [id number]
--- NOTE | 2021-02-03 23:29 | ED Fall/Injury ---
General Chief Complaint: Hip/Pelvic Problems Stated Complaint: FALL - L HIP PAIN Nursing Triage Note: PT AMB TO ED BY POLian WITH C/O L HIP PAIN FOLLOWING FALL AT 1930 TODAY. PT REPORTS SHE TRIPPED ON HER GRANDSON'S BALL AND LANDED ON HER HIP. PT RATES PAIN 8/10, ALSO REPORTS PAIN IN L ELBOW AND WRIST, BUT PT REPORTS SHE IS NOT CONCERNED ABOUT THOSE AREAS. Source: patient Exam Limitations: no limitations History of Present Illness Date Seen by Provider: Feb 03, 2021 Time Seen by Provider: 23:14 Initial Comments This 86-year-old woman presents to the emergency room with concerns about left hip pain after having a fall at home several hours ago. She was tripped up on a ball that rolled between her feet. She landed on her left hip. She denies any other notable injury at this time. She denies head or neck injury or loss of consciousness. There was no prodrome, and this was purely a mechanical fall. Since her fall she has had swelling, bruising, and tenderness of the left lateral hip. She is ambulatory but it is painful to bear weight. She is not on any anticoagulants. There is a firm swelling over the left lateral hip consistent with hematoma. She takes a baby aspirin daily. Allergies and Home Medications Allergies Coded Allergies: atorvastatin (Verified Allergy, Unknown, 08/28/14) simvastatin (Verified Allergy, Unknown, 08/28/14) Patient Home Medication List Home Medication List Reviewed: Yes Amlodipine/Benazepril (Lotrel 10-20 mg Capsule) 1 Cap Cap, 1 CAP PO DAILY, (Reported) Entered as Reported by: CLAUDIA CISNEROS on 04/12/18 1223 Aspirin (Aspir 81) 81 Mg Tablet.dr, 81 MG PO DAILY, (Reported) Entered as Reported by: CLAUDIA CISNEROS on 04/12/18 1223 Atenolol (Atenolol) 50 Mg Tablet, 50 MG PO HS, (Reported) Entered as Reported by: CLAUDIA CISNEROS on 04/12/18 1223 Citalopram Hydrobromide (Citalopram HBr) 20 Mg Tablet, 20 MG PO DAILY, (Reported) Entered as Reported by: CLAUDIA CISNEROS on 04/12/18 1223 Hydrocodone/Acetaminophen (Hydrocodone-Acetamin 5-325 mg) 1 Each Tablet, 0.5-1 TAB PO Q6H PRN for PAIN-MODERATE (5-7) Prescribed by: SILVANA BERNAL on 02/03/21 1763 Levothyroxine Sodium (Levothyroxine) 88 Mcg Capsule, 88 MCG PO DAILY, (Reported) Entered as Reported by: CHRISTINA KIRK on 09/18/20 1409 Multivitamin (Multivitamin) 1 Each Tablet, 1 EACH PO DAILY, (Reported) Entered as Reported by: CHRISTINA KIRK on 09/18/20 1409 Omeprazole (Omeprazole) 40 Mg Capsule.dr, 40 MG PO DAILY, (Reported) Entered as Reported by: CLAUDIA CISNEROS on 04/12/18 1223 Review of Systems Review of Systems Constitutional: no symptoms reported Eyes: No Symptoms Reported Ears, Nose, Mouth, Throat: no symptoms reported Respiratory: no symptoms reported Cardiovascular: no symptoms reported Gastrointestinal: no symptoms reported Genitourinary: no symptoms reported Musculoskeletal: see HPI Skin: see HPI Psychiatric/Neurological: No Symptoms Reported Past Evtsilx-Elelmg-Srjhde Hx Patient Social History Tobacco Use?: No Substance use?: No Alcohol Use?: No Seasonal Allergies Seasonal Allergies: No Past Medical History Surgeries: Yes (HIATAL HERNIA) Appendectomy, Gallbladder, Thyroidectomy Respiratory: No Cardiac: Yes High Cholesterol, Hypertension Neurological: No 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 Genitourinary: Yes UTI-Chronic Gastrointestinal: Yes Gastroesophageal Reflux, Diverticulosis, Hiatal Hernia Musculoskeletal: Yes Arthritis Endocrine: Yes Hypothyroidsim HEENT: Yes Cataract Cancer: No Psychosocial: Yes Depression Integumentary: No Blood Disorders: No Adverse Reaction/Blood Tranf: No Family Medical History Cataracts G8 SISTER Colon cancer G8 SISTER FH: stroke 19 FATHER FHx: heart disease 19 MOTHER Glaucoma G8 SISTER Leukemia G8 BROTHER Prostate cancer G8 BROTHER Thyroid disease G8 SISTER No Pertinent Family Hx Physical Exam Vital Signs Vital Signs - First Documented 02/03/21 22:55 Temp 35.8 Pulse 59 Resp 14 B/P (MAP) 167/89 (115) Pulse Ox 97 O2 Delivery Room Air Capillary Refill : Less Than 3 Seconds Height, Weight, BMI Height: 5'7.00" Weight: 175lbs. 0.0oz. 79.701032we; 27.00 BMI Method:Stated General Appearance: WD/WN, mild distress HEENT: normal ENT inspection Cardiovascular: regular rate, rhythm, no edema, no murmur Respiratory: lungs clear, normal breath sounds, no respiratory distress Gastrointestinal: non tender, soft Extremities: other (Tenderness and firm swelling over the left lateral hip with some mild bruising. No pain with rotation of the hip. No tenderness elsewhere in the lower extremity. Findings consistent with hematoma.) Neurologic/Psychiatric: information officer II-XII nml as tested, no motor/sensory deficits, alert, normal mood/affect, oriented x 3 Skin: normal color, warm/dry, ecchymosis Pingree Coma Score Best Eye Response: (4) Open Spontaneously Best Verbal Response: (5) Oriented Best Motor Response: (6) Obeys Commands Pingree Total: 15 Progress/Results/Core Measures Results/Orders My Orders Orders - SILVANA DRUAN MD Pelvis With Left Hip 2-3 Views (02/03/21 23:03) Vital Signs/I&O 02/03/21 02/04/21 22:55 00:00 Temp 35.8 Pulse 59 64 Resp 14 16 B/P (MAP) 167/89 (115) 159/82 Pulse Ox 97 98 O2 Delivery Room Air Room Air Blood Pressure Mean: 115 Diagnostic Imaging Diagonstic Imaging: Xray Plain Films/CT/US/NM/MRI: pelvis, hip Comments X-rays of the pelvis and left hip reviewed by me and report reviewed. See report below: NAME: [facility] REC#: [id number] PT STATUS: REG ER : 1935 PHYSICIAN: SILVANA DURAN MD ADMIT DATE: 02/03/21/ER Draft Date of Exam:02/03/21 PELVIS WITH LEFT HIP 2-3 VIEWS INDICATION: Left hip pain AP view pelvis and 2 views of the left hip show no fracture, dislocation or other acute abnormalities. IMPRESSION: Negative pelvis and left hip Dictated on workstation # [id number] Dict: 02/03/212320 Trans: 02/03/212323 EROS [id number] Interpreted by: CELIAN MCGUIRE MD Departure Impression Primary Impression: Fall on same level from tripping Additional Impressions: Left hip pain Hematoma of left hip Qualified Codes: S70.02XA - Contusion of left hip, initial encounter Disposition: HOME, SELF-CARE Condition: Stable Departure-Patient Inst. Decision time for Depature: 23:49 Referrals: BRAYAN ALLISON MD (PCP/Family) Primary Care Physician Patient Instructions: HEMATOMA Add. Discharge Instructions: You may use ice and gentle compression to treat your hematoma. Icing in 20- minute intervals works well. You may use Tylenol (acetaminophen) up to 1000 mg every 6 hours as needed for mild to moderate pain. For more severe pain, you may use hydrocodone as prescribed. If you use hydrocodone, you may wish to use a stool softener such as Colace to prevent constipation. Please be advised that hydrocodone may also cause some drowsiness. This prescription cannot be printed. These prescriptions must be sent electronically. If you do not need this prescription, call [facility] to cancel it. Use a cane or walker to help with balance and to offload some weight from your left leg if it is painful to walk. Expected the hematoma to increase a bit in size and expect significant spreading of skin discoloration as the dissolving blood product spread through the tissue. Call with questions or concerns. Return to the ER if you have worsening symptoms. All discharge instructions reviewed with patient and/or family. Voiced understanding. Scripts Hydrocodone/Acetaminophen (Hydrocodone-Acetamin 5-325 mg) 1 Each Tablet 0.5-1 TAB PO Q6H PRN for PAIN-MODERATE (5-7), #10 TAB Prov: SILVANA DURAN MD 02/03/21 Copy Copies To 1: BRAYAN ALLISON MD, JOSHUA T MD Feb 03, 2021 23:29
[2021-02-03] MEDS ORDERED: ACHD5005 PO (23:52)
[2021-02-04] VITALS: BP 159/82
== END 2021-02-04 | disposition home or self-care (01) ==
LOC: EDUNIT# 22:45 → ER 22:46
DX: S70.02XA Contusion of left hip, initial encounter (principal); I10 Essential (primary) hypertension; E89.0 Postprocedural hypothyroidism; F32.9 Major depressive disorder, single episode, unspecified; K21.9 Gastro-esophageal reflux disease without esophagitis; Z79.82 Long term (current) use of aspirin; Z79.890 Hormone replacement therapy; Z79.899 Other long term (current) drug therapy; W01.198A Fall on same level from slipping, tripping and stumbling with subsequent striking against other object, initial encounter

== ENCOUNTER → 2021-09-03 | Outpatient (CLI) | payer MEDICARE, OTHER ==
[~2021-09-03] MED LIST changes: +ACHD5005 PO
--- NOTE | 2021-09-03 12:34 | Diagnostic Imaging Report ---
INDICATION: Postmenopausal state. COMPARISON: 07/21/2000 FINDINGS: AP Spine L1-L4: [BMD (g/cm2): 1.191] [T-Score: -0.1] [Z-Score: 1.5] [BMD Previous: 1.154] [BMD % Change: 3.2*] LT Hip Neck: [BMD (g/cm2): 0.781] [T-Score: -1.8] [Z-Score: 0.4] LT Hip Total: [BMD (g/cm2):0.913] [T-Score:-0.7] [Z-Score: 1.4] [BMD Previous: 0.967] [BMD % Change: -5.6*] RT Hip Neck: [BMD (g/cm2):0.755] [T-Score:-2.0] [Z-Score:0.2] RT Hip Total: [BMD (g/cm2):0.832] [T-score:-1.4] [Z-Score:0.7] [BMD Previous:0.898] [BMD % Change:-7.3]* *Indicates significant change from prior examination based on 95% confidence level. World Health Organization criteria for BMD interpretation classify patients as Normal (T-score at or above -1.0), Osteopenic (T-score between -1.0 and -2.5) or Osteoporotic (T-score at or below -2.5). LIMITATIONS AND MODIFICATION: None. FRACTURE RISK (FRAX SCORE): The ten year probability of (%): Major Osteoporotic Fracture: [14.4] Hip Fracture: [4.7] IMPRESSION: 1. Osteopenia (Low bone mass). 2. Bone mineral density has decreased by a statistically significant amount since 2000, as detailed above. 3. See below National Osteoporosis Foundation guidelines on when to potentially initiate pharmacologic therapy. Based on the National Osteoporosis Foundation Guidelines, pharmacologic treatment should be initiated in any of the following, unless clinical conditions suggest otherwise: * Any patient with prior fragility fracture of the hip or vertebrae. A spine fracture indicates 5X risk for subsequent spine fracture and 2X risk for subsequent hip fracture. * Osteoporosis (T-score <-2.5). * Postmenopausal women and men age 50 and older with low bone mass/osteopenia (T-score between -1.0 and -2.5) by DXA and 10-year major osteoporotic fracture greater than 20% or a 10-year probability of hip fracture greater than 3%. These fracture risks are supplied above in the FRAX score, if applicable. * Clinician judgement and/or patient preferences may indicate treatment for people with 10-year fracture probabilities above or below these levels. Dictated by: Dictated on workstation # [id number]
--- NOTE | 2021-09-03 15:20 | Diagnostic Imaging Report ---
INDICATION: Screening. EXAMINATION: Bilateral digital 3D screening with CAD. COMPARISON: November 2017, November 2016, and November 2015. DENSITY: 3. FINDINGS: No breast mass, spiculated lesion, architectural distortion, suspicious calcifications, or findings to suggest malignancy. There has been no significant change. IMPRESSION: Negative mammography. ACR BI-RADS Category 1: Negative. Result letter will be mailed to the patient. Note: At least 10% of breast cancer is not imaged by mammography. Dictated by: Dictated on workstation # [id number]
== END ==
LOC: RAD 11:15
PROVIDERS: ATTEND Family Medicine
DX: Z12.31 Encounter for screening mammogram for malignant neoplasm of breast (principal); M85.80 Other specified disorders of bone density and structure, unspecified site; Z78.0 Asymptomatic menopausal state
CPT/HCPCS: 77063; 77067; 77080